=== PATIENT | male | born 1955 | race Caucasian/White ===

== ENCOUNTER → 2022-07-31 | Outpatient (CLI) | payer MEDICARE ==
--- NOTE | 2022-07-31 10:16 | MR ---
EXAMINATION TYPE: MR shoulder RT wo con DATE OF EXAM: 07/31/2022 COMPARISON: None HISTORY: Rt shoulder pain TECHNIQUE: Multiplanar, multisequence imaging of the right shoulder is performed without contrast. FINDINGS: There is a complete loss of joint space of the glenohumeral joint. With a loss of cartilage and a small joint effusion. There is a complete thickness tear of the subscapularis and supraspinatus tendons with retraction. Th ere is reactive edema within the supraspinatus muscle. There is partial tearing involving the anterior fiber insertion of the infraspinatus tendon measuring approximately 5 mm. No retraction. The bicipital tendon is dislocated from the bicipital groove and there is fluid surrounding the bicep s tendon. The tendon appears to be displaced and is along the anterior margin of the joint surface. The bony labrum are grossly intact. There is hypertrophic severe arthropathy of the AC joint resultin g in impingement and there is atrophy of the rotator cuff musculature. IMPRESSION: 1. Complete through thickness tear with retraction of the supraspinatus tendon. Reactive edema within the supraspinatus muscle likely secondary to supraspinatus tendon complete tear. 2. Complete through thickness tear with retraction of the subscapularis tendon. 3. Bicipital tendinosis with dislocation of the biceps tendon bicipital groove and displacement along the anterior joint space. 4. Severe AC joint arthropathy. 5. Severe glenohumeral joint arthropathy small joint effusion.
== END | disposition home or self-care (01) ==
LOC: RADMRIMAIN 08:17
PROVIDERS: ATTEND Physician Assistant
DX: M75.111 Incomplete rotator cuff tear or rupture of right shoulder, not specified as traumatic (principal); M19.011 Primary osteoarthritis, right shoulder; M67.813 Other specified disorders of tendon, right shoulder; S43.004A Unspecified dislocation of right shoulder joint, initial encounter

== ENCOUNTER → 2022-11-04 | Outpatient (CLI) | payer MEDICARE ==
[2022-11-04 09:49] LABS: African American GFR (CKD) 65 (>60 ml/min/1.73 sqM); Blood Urea Nitrogen 28 mg/dL (9-20); Non-African American GFR(CKD) 56 (>60 ml/min/1.73 sqM)
--- NOTE | 2022-11-04 10:37 | CT ---
EXAMINATION TYPE: CT chest w con CT DLP: 462.2 mGycm, Automated exposure control for dose reduction was used. DATE OF EXAM: 11/04/2022 10:23 AM COMPARISON: CT chest 05/01/2022 CLINICAL INDICATION:Male, 67 years old with history of R91.1 SOLITARY PULMONARY NODULE; PHH, SPN TECHNIQUE: Multiple axial images were obtained through the chest following the administration of 100 cc of Isovue 300. . Coronal and sagittal reformats reviewed. FINDINGS: LUNGS/ PLEURA: Near-complete resolution of previously seen left upper lobe 6 mm pulmonary nodule, now measuring 2 mm. No new or enlarging pulmonary nodules. No focal consolidation, pneumothorax or pleur al effusion. AIRWAY: Patent. No evidence of bronchial wall thickening or bronchiectasis. HEART: Size within normal limits. No pericardial effusionSevere coronary artery calcifications. MEDIASTINUM: No evidence of adenopathy. VASCULATURE: No aortic aneurysm. Pulmonary trunk is dilated measuring up to 2.9 cm with dilation of the right and left pulmonary trunks. MUSCULOSKELETAL: No acute osseous abnormalities SOFT TISSUES/LYMPH NODES: Unremarkable. LOWER NECK: No significant findings. UPPER ABDOMEN: No significant findings. IMPRESSION: 1. No acute thoracic process. 2. Resolution of left upper lobe pulmonary nodule measuring 2 mm, previously 6 mm. Likely resolving infectious/inflammatory nodule. No new or enlarging pulmonary nodules. 3. Findings suggestive of pulmonary hypertension with dilated right and left pulmonary trunks.
== END | disposition home or self-care (01) ==
LOC: RADCTMAIN 08:55
PROVIDERS: ATTEND Internal Medicine Critical Care Medicine
DX: R91.1 Solitary pulmonary nodule (principal)
CPT/HCPCS: 82565; 84520; 71260; 36415; Q9967

== ENCOUNTER 2023-06-04 11:36 | Day surgery (SDC) | payer MEDICARE ==
[~2023-06-04 11:36] MED LIST: DEXAMETHASONE SOD PHOSPHATE 4 MG/ML 1 ML VIAL IV ONE; LACTATED RINGERS 1,000 ML IV SCH; LIDOCAINE 1% (10MG/ML) FOR IV START INTRADERMA PRN; ONDANSETRON 4 MG/2 ML VIAL IVP ONE
[2023-06-04] MEDS: LACTATED RINGERS 1,000 ML IV SCH (12:10)
[2023-06-04] MEDS: ALBUTEROL NEBULIZED 2.5 MG/3 ML INHALATION ONE (12:10)
[2023-06-04] MEDS: ATROPINE SULFATE 0.4 MG/ML 1 ML VIAL IM ONE (12:18)
[2023-06-04 12:25] LABS: Glucose,Whole Blood 113 mg/dL (70-110)
[2023-06-04] MEDS ORDERED: PROPOFOL 10 MG/ML 20 ML VIAL IV ONE (12:36)
[2023-06-04] MEDS ORDERED: LIDOCAINE 1% INJ 10MG/ML (20 ML MDV) ONE (12:36)
[2023-06-04] MEDS ORDERED: MIDAZOLAM 2 MG/2 ML VIAL ONE (12:36)
[2023-06-04] MEDS ORDERED: KETAMINE HCL IN 0.9 % NACL 50 MG/5 ML SYRINGE ONE (12:36)
[2023-06-04 12:55] VITALS: TEMP 98.7
[2023-06-04 13:29] VITALS: RESP 16
--- NOTE | 2023-06-04 13:49 | PCN ---
PROCEDURE NOTE PULMONARY/CRITICAL CARE PROCEDURE NOTE: PROCEDURES PERFORMED: Bronchoscopy; airway examination; therapeutic lavage; BAL, right middle lobe. PREOPERATIVE DIAGNOSES: Chronic obstructive pulmonary disease exacerbation, retained secretions, bronchitis/pneumonia. POSTOPERATIVE DIAGNOSES: Chronic obstructive pulmonary disease exacerbation, retained secretions, bronchitis/pneumonia. MAPPING PILOT: Dr. Haley. FIRST TECHNICAL AIDE: Dr. Teri Campo. The patient's procedure took place in room #2, [facility]. There was informed consent and universal timeout. ANESTHESIA PROVIDED: General anesthesia. DESCRIPTION OF PROCEDURE: After the patient was adequately sedated and being fully monitored, the bronchoscope was inserted through the right nostril. It passed through the right nasopharynx into the oropharynx. The hypopharynx was identified and topicalized. The hypopharyngeal structures including anterior commissure, true cords, false cords, piriform sinuses, right and left, vallecula, and epiglottis, all appeared relatively normal. The glottic opening was topicalized. The bronchoscope was pushed through the glottic opening into the trachea. The trachea appeared relatively normal, although there were thick secretions noted in the trachea. They were suctioned. The tracheal sumit was sharp. The right and left mainstem were topicalized with lidocaine. The right upper lobe and its 3 segments, right middle lobe and its 2 segments, right lower lobe and its 5 segments, left upper lobe proper and its 2 segments, lingula and its 2 segments, and left lower lobe and its 4 segments all had similar findings of diffuse airway erythema and hyperemia. There was mucosal friability. There was vascular engorgement. There was no dominant mass or tumor. There were thick secretions noted throughout. They were suctioned with some difficulty. After the secretions were suctioned, with the aid of saline, the bronchoscope was wedged into the right middle lobe. A formal BAL took place. More than 30 mL of fluid was recovered. The fluid will be sent for analysis including cytology, chemistry, microbiology, etc. The patient tolerated the procedure well. The bronchoscope was withdrawn. The patient will be recovered. MMODL / IJN: [id number] /
[2023-06-04 14:03] VITALS: BP 123/70; PULSE 104
[2023-06-04 18:26] LABS: Appearance,BF Bloody (Clear)
== END 2023-06-04 13:57 | disposition home or self-care (01) ==
LOC: ORWHC2ENDO 11:36
PROVIDERS: ATTEND Internal Medicine Critical Care Medicine
DX: J44.1 Chronic obstructive pulmonary disease with (acute) exacerbation (principal); J44.0 Chronic obstructive pulmonary disease with (acute) lower respiratory infection; J18.9 Pneumonia, unspecified organism; I25.2 Old myocardial infarction; I10 Essential (primary) hypertension; E78.5 Hyperlipidemia, unspecified; Z95.5 Presence of coronary angioplasty implant and graft; Z79.51 Long term (current) use of inhaled steroids; Z79.899 Other long term (current) drug therapy
CPT/HCPCS: 89050; 87070; 87205; 87116; 87102; 87206; 31624; J2250; J0461; J2001; J2704

== ENCOUNTER 2024-03-11 11:13 | Inpatient (IN) | payer MEDICARE ==
[2024-03-11] MEDS: ONDANSETRON 4 MG/2 ML VIAL IVP STA (11:20)
[2024-03-11] MEDS: IPRATROPIUM 0.5 MG/2.5 ML NEBU INHALATION STA (11:42)
[2024-03-11] MEDS: ALBUTEROL NEBULIZED 2.5 MG/3 ML INHALATION STA (11:42)
[2024-03-11] MEDS: methylPREDNISolone SOD SUCCI 125 MG/2 ML VIAL IV STA (11:55)
[2024-03-11] MEDS: cefTRIAXone IN SWFI 1,000 MG/10 ML SYRINGE IVP STA ×2 (12:02→12:06)
[2024-03-11] MEDS: ACETAMINOPHEN TAB 500 MG TAB PO STA (12:08)
[2024-03-11] MEDS: IBUPROFEN 600 MG TAB PO STA (12:09)
[2024-03-11 12:17] LABS: ALT 25 U/L (4-49); AST 28 U/L (17-59); African American GFR (CKD) 66 (>60 ml/min/1.73 sqM); Albumin 4.5 g/dL (3.5-5.0); Alkaline Phosphatase 61 U/L (38-126); Anion Gap 10 mmol/L; Blood Urea Nitrogen 34 mg/dL (9-20); Calcium 9.4 mg/dL (8.4-10.2); Carbon Dioxide 26 mmol/L (22-30); Chloride 104 mmol/L (98-107); Glucose 123 mg/dL (74-99); Magnesium 1.6 mg/dL (1.6-2.3); Non-African American GFR(CKD) 57 (>60 ml/min/1.73 sqM); Potassium 3.8 mmol/L (3.5-5.1); Sodium 140 mmol/L (137-145); Total Bilirubin 1.1 mg/dL (0.2-1.3); Total Protein 6.8 g/dL (6.3-8.2)
[2024-03-11 12:24] LABS: HCT 49.5 % (39.0-53.0); HGB 16.1 gm/dL (13.0-17.5); MCH 33.6 pg (25.0-35.0); MCHC 32.6 g/dL (31.0-37.0); MCV 102.9 fL (80.0-100.0); Macrocytosis Slight; Platelet Count 176 k/uL (150-450); Prothrombin Time 10.8 sec (10.0-12.5); RBC 4.81 m/uL (4.30-5.90); RDW 14.5 % (11.5-15.5); WBC 12.3 k/uL (3.8-10.6)
[2024-03-11 12:25] LABS: NT-Pro-B-Type Natriuretic Pept 415 pg/mL
[2024-03-11] MEDS: HYDROCORTISONE SUCCINATE 100 MG/2 ML VIAL IV STA (12:28)
[2024-03-11 12:34] LABS: Partial Thromboplastin Time 19.9 sec (22.0-30.0)
--- NOTE | 2024-03-11 12:41 | ED ---
General Adult HPI - General Chief complaint: Shortness of Breath Stated complaint: NOEMY Time Seen by Provider: 03/11/24 11:25 Source: patient, EMS, RN notes reviewed, old records reviewed Mode of arrival: EMS - History of Present Illness Initial comments: This is a 68-year-old male who presents to the emergency department complaining of difficulty breathing. Patient states has been ongoing for 4 days. Patient states is just gotten progressively worse. Patient states he is on 2 L of oxygen at home. Patient states he does have a cough and that has been getting progressively worse. Patient states he is coughing up some pinkish sputum. Patient also states he just got back from [place]. Patient denies any fever that he knows of however we measured a fever orally in the emergency department. Patient denies any abdominal pain patient has nausea vomiting diarrhea. - Related Data Home Medications Medication Instructions Recorded Confirmed Aspirin [Adult Low Dose Aspirin EC] 81 mg PO DAILY 06/02/23 06/02/23 Fluticasone/Umeclidin/Vilanter 1 inh INHALATION DAILY 06/02/23 06/02/23 [Trelegy Ellipta 200-62.5-25] Metoprolol Succinate [Metoprolol 25 mg PO DAILY 06/02/23 06/02/23 Succinate ER] Montelukast [Singulair] 10 mg PO DAILY 06/02/23 06/02/23 Simvastatin 40 mg PO DAILY 06/02/23 06/02/23 lisinopriL [Zestril] 10 mg PO DAILY 06/02/23 06/02/23 traZODone HCL 100 mg PO HS 06/02/23 06/02/23 Allergies Allergy/AdvReac Type Severity Reaction Status Date / Time No Known Allergies Allergy Verified 03/11/24 11:35 Review of Systems ROS Statement: Those systems with pertinent positive or pertinent negative responses have been documented in the HPI. ROS Other: All systems not noted in ROS Statement are negative. 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 states he's awaiting delviery of home O2. pt not sure if he's to wear atc or not at this time. Last Myocardial Infarction Date:: 30-40 yrs ago History of Any Multi-Drug Resistant Organisms: None Reported Past Surgical History: Back Surgery, Heart Catheterization With Stent, Orthopedic Surgery Additional Past Surgical History / Comment(s): rt shoulder rotator cuff repair Past Anesthesia/Blood Transfusion Reactions: No Reported Reaction Date of Last Stent Placement:: unk Past Psychological History: No Psychological Hx Reported Smoking Status: Former smoker Past Alcohol Use History: Occasional Past Drug Use History: None Reported - Past Family History Father Family Medical History: Cancer Mother Family Medical History: Cancer Brother(s) Family Medical History: Cancer General Exam - General Exam Comments Initial Comments: GENERAL: Patient is well-developed and well-nourished. Patient is nontoxic and well- hydrated and is in moderate distress. ENT: Neck is soft and supple. No significant lymphadenopathy is noted. Oropharynx is clear. Moist mucous membranes. Neck has full range of motion without eliciting any pain. EYES: The sclera were anicteric and conjunctiva were pink and moist. Extraocular movements were intact and pupils were equal round and reactive to light. Eyelids were unremarkable. PULMONARY: Unlabored respirations. Good breath sounds bilaterally. No audible rales rhonchi or wheezing was noted. CARDIOVASCULAR: There is a regular rate and rhythm without any murmurs gallops or rubs. ABDOMEN: Soft and nontender with normal bowel sounds. SKIN: Skin is clear with no lesions or rashes and otherwise unremarkable. NEUROLOGIC: Patient is alert and oriented x3. Cranial nerves II through XII are grossly intact. Motor and sensory are also intact. Normal speech, volume and content. Symmetrical smile. MUSCULOSKELETAL: Normal extremities with adequate strength and full range of motion. LYMPHATICS: No significant lymphadenopathy is noted PSYCHIATRIC: Normal psychiatric evaluation. Course Vital Signs 03/11/24 03/11/24 03/11/24 11:22 11:30 11:32 Temperature 100.8 F H Pulse Rate 134 H 128 H Respiratory 30 H 34 H Rate Blood Pressure 133/100 89/69 O2 Sat by Pulse 74 L 95 Oximetry Fraction of 50 Inspired Oxygen (FIO2) 03/11/24 03/11/24 03/11/24 11:33 11:43 11:55 Temperature Pulse Rate 128 H 126 H Respiratory 30 H Rate Blood Pressure 91/68 O2 Sat by Pulse 94 L Oximetry Fraction of 50 Inspired Oxygen (FIO2) 03/11/24 03/11/24 03/11/24 12:00 12:07 12:12 Temperature Pulse Rate 124 H 131 H 129 H Respiratory 28 H 32 H Rate Blood Pressure 78/52 85/59 O2 Sat by Pulse 96 90 L Oximetry Fraction of Inspired Oxygen (FIO2) 03/11/24 03/11/24 03/11/24 12:23 13:28 13:34 Temperature 98.6 F Pulse Rate 131 H 118 H 113 H Respiratory 26 H 25 H 26 H Rate Blood Pressure 82/60 86/59 90/61 O2 Sat by Pulse 95 93 L 97 Oximetry Fraction of Inspired Oxygen (FIO2) 03/11/24 14:12 Temperature Pulse Rate 110 H Respiratory 20 Rate Blood Pressure 104/90 O2 Sat by Pulse 96 Oximetry Fraction of Inspired Oxygen (FIO2) Procedures - [place] Protocol (Time Out) Nurse: Nilam Bello Medical Decision Making - Medical Decision Making EKG is interpreted by myself. EKG shows a sinus tachycardia with occasional PVC at 120 bpm ME interval 129 QRS is 97 QT interval is 317 QTc is 388. Patient's EKG shows no ST segment elevation or depression. Was pt. sent in by a medical professional or institution (, PA, MECHANICAL PLANNER, urgent care, hospital, or shelter...) When possible be specific @ -No Did you speak to anyone other than the patient for history (EMS, parent, family, police, friend...)? What history was obtained from this source @ -No Did you review nursing and triage notes (agree or disagree)? Why? @ -I reviewed and agree with nursing and triage notes Were old charts reviewed (outside hosp., previous admission, EMS record, old EKG, old radiological studies, urgent care reports/EKG's, shelter records)? Report findings @ -No old charts were reviewed Differential Diagnosis? @ -Differential Dyspnea: Coronary syndrome, arrhythmia, tamponade, asthma, COPD, pulmonary embolism, pneumonia, pneumothorax, pulmonary effusion, anaphylaxis, diabetic ketoacidosis, flailed chest, pulmonary contusion, diaphragmatic rupture, anemia, neuromuscular, this is not meant to be an all-inclusive list. EKG interpreted by me (3pts min.). @ -As above X-rays interpreted by me (1pt min.). @ -X-ray shows bilateral infiltrates. CT interpreted by me (1pt min.). @ -CT of the chest shows no pulmonary embolism but it does show bilateral infiltrates worse on the left than the right. U/S interpreted by me (1pt. min.). @ -None done What testing was considered but not performed or refused? (CT, X-rays, U/S, labs)? Why? @ -None What meds were considered but not given or refused? Why? @ -None Did you discuss the management of the patient with other professionals (professionals i.e. DrEddie, PA, MECHANICAL PLANNER, lab, RT, psych nurse, social sciences research scientist, bed maker, teacher, public health officer, family preservation caseworker)? Give summary @ -I spoke with Dr. Rosenberg and he agreed to admit the patient. Was smoking cessation discussed for >3mins.? @ -No Was critical care preformed (if so, how long)? @ -35 minutes Were there social determinants of health that impacted care today? How? (Homelessness, low income, unemployed, alcoholism, drug addiction, transportation, low edu. Level, literacy, decrease access to med. care, senior living, rehab)? @ -No Was there de-escalation of care discussed even if they declined (Discuss DNR or withdrawal of care, Hospice)? DNR status @ -No What co-morbidities impacted this encounter? (DM, HTN, Smoking, COPD, CAD, Cancer, CVA, ARF, Chemo, Hep., AIDS, mental health diagnosis, sleep apnea, morbid obesity)? @ -None Was patient admitted / discharged? Hospital course, mention meds given and route, prescriptions, significant lab abnormalities, going to OR and other pertinent info. @ -Patient has COVID-pneumonia as well as an overlying bacterial pneumonia and he was started on antibiotics in the emergency department. Patient received 2 breathing treatments as well as steroids. Patient was also placed on BiPAP immediately and was feeling much better. Sound physicians will be admitting and pulmonary will be consulted Undiagnosed new problem with uncertain prognosis? @ -No Drug Therapy requiring intensive monitoring for toxicity (Heparin, Nitro, Insulin, Cardizem)? @ -No Were any procedures done? @ -No Diagnosis/symptom? @ -COVID Acute, or Chronic, or Acute on Chronic? @ -Acute Uncomplicated (without systemic symptoms) or Complicated (systemic symptoms)? @ -Default Side effects of treatment? @ -No Exacerbation, Progression, or Severe Exacerbation? @ -No Poses a threat to life or bodily function? How? (Chest pain, [place], [place], pneumonia, PE, COPD, DKA, ARF, appy, cholecystitis, CVA, Diverticulitis, Homicidal, Suicidal, threat to staff... and all critical care pts) @ -Yes this can lead to hypoxia and endorgan dysfunction Diagnosis/symptom? @ -Pneumonia Acute, or Chronic, or Acute on Chronic? @ -Acute Uncomplicated (without systemic symptoms) or Complicated (systemic symptoms)? @ -Complicated Side effects of treatment? @ -None Exacerbation, Progression, or Severe Exacerbation] @ -No Poses a threat to life or bodily function? @ -Yes this can lead to hypoxia and endorgan dysfunction - Lab Data Result diagrams: 03/11/24 11:45 03/11/24 11:45 Lab Results 03/11/24 03/11/24 03/11/24 Range/Units 11:45 11:45 11:45 WBC 12.3 H (3.8-10.6) k/uL RBC 4.81 (4.30-5.90) m/uL Hgb 16.1 (13.0-17.5) gm/dL Hct 49.5 (39.0-53.0) % MCV 102.9 H (80.0-100.0) fL MCH 33.6 (25.0-35.0) pg MCHC 32.6 (31.0-37.0) g/dL RDW 14.5 (11.5-15.5) % Plt Count 176 (150-450) k/uL MPV 8.0 Neutrophils % (Manual) 77 % Band Neuts % (Manual) 9 % Lymphocytes % (Manual) 5 % Monocytes % (Manual) 9 % Neutrophils # (Manual) 10.50 H (1.3-7.7) k/uL Lymphocytes # (Manual) 0.62 L (1.0-4.8) k/uL Monocytes # (Manual) 1.11 H (0-1.0) k/uL Nucleated RBCs 0 (0-0) /100 WBC Manual Slide Review Performed Toxic Granulation Present Macrocytosis Slight PT 10.8 (10.0-12.5) sec INR 1.0 (<1.2) APTT 19.9 L (22.0-30.0) sec D-Dimer (<0.60) mg/L FEU Sample Site ABG pH (7.35-7.45) ABG pCO2 (35-45) mmHg ABG pO2 (83-108) mmHg ABG HCO3 (21-25) mmol/L ABG Total CO2 (19-24) mmol/L ABG O2 Saturation (94-97) % Ryan Test FiO2 % Sodium 140 (137-145) mmol/L Potassium 3.8 (3.5-5.1) mmol/L Chloride 104 (98-107) mmol/L Carbon Dioxide 26 (22-30) mmol/L Anion Gap 10 mmol/L BUN 34 H (9-20) mg/dL Creatinine 1.27 H (0.66-1.25) mg/dL Est GFR (CKD-EPI)AfAm 66 (>60 ml/min/1.73 sqM) Est GFR (CKD-EPI)NonAf 57 (>60 ml/min/1.73 sqM) Glucose 123 H (74-99) mg/dL Lactic Ac Sepsis Rflx Plasma Lactic Acid Miko (0.7-2.0) mmol/L Calcium 9.4 (8.4-10.2) mg/dL Magnesium 1.6 (1.6-2.3) mg/dL Total Bilirubin 1.1 (0.2-1.3) mg/dL AST 28 (17-59) U/L ALT 25 (4-49) U/L Alkaline Phosphatase 61 (38-126) U/L Troponin I (0.000-0.034) ng/mL NT-Pro-B Natriuret Pep 415 pg/mL Total Protein 6.8 (6.3-8.2) g/dL Albumin 4.5 (3.5-5.0) g/dL Influenza Type A (PCR) (Not Detectd) Influenza Type B (PCR) (Not Detectd) RSV (PCR) (Not Detectd) SARS-CoV-2 (PCR) (Not Detectd) 03/11/24 03/11/24 03/11/24 Range/Units 11:45 11:45 11:45 WBC (3.8-10.6) k/uL RBC (4.30-5.90) m/uL Hgb (13.0-17.5) gm/dL Hct (39.0-53.0) % MCV (80.0-100.0) fL MCH (25.0-35.0) pg MCHC (31.0-37.0) g/dL RDW (11.5-15.5) % Plt Count (150-450) k/uL MPV Neutrophils % (Manual) % Band Neuts % (Manual) % Lymphocytes % (Manual) % Monocytes % (Manual) % Neutrophils # (Manual) (1.3-7.7) k/uL Lymphocytes # (Manual) (1.0-4.8) k/uL Monocytes # (Manual) (0-1.0) k/uL Nucleated RBCs (0-0) /100 WBC Manual Slide Review Toxic Granulation Macrocytosis PT (10.0-12.5) sec INR (<1.2) APTT (22.0-30.0) sec D-Dimer 5.43 H (<0.60) mg/L FEU Sample Site ABG pH (7.35-7.45) ABG pCO2 (35-45) mmHg ABG pO2 (83-108) mmHg ABG HCO3 (21-25) mmol/L ABG Total CO2 (19-24) mmol/L ABG O2 Saturation (94-97) % Ryan Test FiO2 % Sodium (137-145) mmol/L Potassium (3.5-5.1) mmol/L Chloride (98-107) mmol/L Carbon Dioxide (22-30) mmol/L Anion Gap mmol/L BUN (9-20) mg/dL Creatinine (0.66-1.25) mg/dL Est GFR (CKD-EPI)AfAm (>60 ml/min/1.73 sqM) Est GFR (CKD-EPI)NonAf (>60 ml/min/1.73 sqM) Glucose (74-99) mg/dL Lactic Ac Sepsis Rflx Plasma Lactic Acid Miko 2.7 H* (0.7-2.0) mmol/L Calcium (8.4-10.2) mg/dL Magnesium (1.6-2.3) mg/dL Total Bilirubin (0.2-1.3) mg/dL AST (17-59) U/L ALT (4-49) U/L Alkaline Phosphatase (38-126) U/L Troponin I 0.096 H* (0.000-0.034) ng/mL NT-Pro-B Natriuret Pep pg/mL Total Protein (6.3-8.2) g/dL Albumin (3.5-5.0) g/dL Influenza Type A (PCR) (Not Detectd) Influenza Type B (PCR) (Not Detectd) RSV (PCR) (Not Detectd) SARS-CoV-2 (PCR) (Not Detectd) 03/11/24 03/11/24 03/11/24 Range/Units 12:12 12:18 12:32 WBC (3.8-10.6) k/uL RBC (4.30-5.90) m/uL Hgb (13.0-17.5) gm/dL Hct (39.0-53.0) % MCV (80.0-100.0) fL MCH (25.0-35.0) pg MCHC (31.0-37.0) g/dL RDW (11.5-15.5) % Plt Count (150-450) k/uL MPV Neutrophils % (Manual) % Band Neuts % (Manual) % Lymphocytes % (Manual) % Monocytes % (Manual) % Neutrophils # (Manual) (1.3-7.7) k/uL Lymphocytes # (Manual) (1.0-4.8) k/uL Monocytes # (Manual) (0-1.0) k/uL Nucleated RBCs (0-0) /100 WBC Manual Slide Review Toxic Granulation Macrocytosis PT (10.0-12.5) sec INR (<1.2) APTT (22.0-30.0) sec D-Dimer (<0.60) mg/L FEU Sample Site Left Radial ABG pH 7.34 L (7.35-7.45) ABG pCO2 45 (35-45) mmHg ABG pO2 76 L (83-108) mmHg ABG HCO3 24 (21-25) mmol/L ABG Total CO2 26 H (19-24) mmol/L ABG O2 Saturation 94.9 (94-97) % Ryan Test Yes FiO2 50 % Sodium (137-145) mmol/L Potassium (3.5-5.1) mmol/L Chloride (98-107) mmol/L Carbon Dioxide (22-30) mmol/L Anion Gap mmol/L BUN (9-20) mg/dL Creatinine (0.66-1.25) mg/dL Est GFR (CKD-EPI)AfAm (>60 ml/min/1.73 sqM) Est GFR (CKD-EPI)NonAf (>60 ml/min/1.73 sqM) Glucose (74-99) mg/dL Lactic Ac Sepsis Rflx Y Plasma Lactic Acid Miko (0.7-2.0) mmol/L Calcium (8.4-10.2) mg/dL Magnesium (1.6-2.3) mg/dL Total Bilirubin (0.2-1.3) mg/dL AST (17-59) U/L ALT (4-49) U/L Alkaline Phosphatase (38-126) U/L Troponin I (0.000-0.034) ng/mL NT-Pro-B Natriuret Pep pg/mL Total Protein (6.3-8.2) g/dL Albumin (3.5-5.0) g/dL Influenza Type A (PCR) Not Detected (Not Detectd) Influenza Type B (PCR) Not Detected (Not Detectd) RSV (PCR) Not Detected (Not Detectd) SARS-CoV-2 (PCR) Detected A (Not Detectd) Disposition Clinical Impression: COVID-19, Pneumonia Disposition: ADMITTED IP TO THIS HOSP Referrals: Anant Maria DO [Primary Care Provider] - 1-2 days Time of Disposition: 14:37
--- NOTE | 2024-03-11 12:43 | XR ---
EXAMINATION TYPE: XR chest 1V portable DATE OF EXAM: 03/11/2024 12:32 PM COMPARISON: None. CLINICAL INDICATION: Male, 68 years old with history of difficulty breathing, TECHNIQUE: Single frontal view of the chest is obtained. FINDINGS: Patchy basilar infiltrates noted. Correlate for pneumonia. The cardiac silhouette size is w ithin normal limits. The osseous structures are intact. IMPRESSION: Correlate for basilar pneumonia. [facility], , 03/11/2024 12:41 PM
[2024-03-11 12:45] LABS: ABG HCO3 24 mmol/L (21-25); ABG PCO2 45 mmHg (35-45); ABG PH 7.34 (7.35-7.45); ABG PO2 76 mmHg (83-108); Allen Test Performed? Yes
[2024-03-11 12:46] LABS: ABG Oxygen Saturation 94.9 % (94-97); ABG TCO2 26 mmol/L (19-24)
[2024-03-11 12:51] LABS: Band Neutrophils % 9 %; Lymphocytes # (M) 0.62 k/uL (1.0-4.8); Monocytes # (M) 1.11 k/uL (0-1.0); Neutrophils % (M) 77 %; Nucleated Red Blood Cells 0 /100 WBC (0-0); Total Cells Counted 100
[2024-03-11 12:52] LABS: Toxic Granulation Present
[2024-03-11] MEDS: SODIUM CHLORIDE 0.9% 1,000 ML IV ONE (13:24)
[2024-03-11] MEDS: SODIUM CHLORIDE 0.9% 500 ML 500 ML IV ONE ×2 (13:26→23:17)
--- NOTE | 2024-03-11 14:22 | CT ---
EXAMINATION TYPE: CT chest angio for PE DATE OF EXAM: 03/11/2024 COMPARISON: 11/04/2022 CLINICAL INDICATION: Male, 68 years old with history of Elevated D-dimer, dyspnea; PHH, sob, SOB or P AIN TECHNIQUE: Ct angiogram of the chest performed with with IV Contrast, patient injected with 65 mL of Isovue 370. MIP images are created and reviewed. CT DLP: 396.[address] CTDI: mGy Automated exposure control for dose reduction was used. FINDINGS: There is a large focal partially consolidative opacity in the left lower lobe. There are scattered fo enio areas of consolidation in the right lung is well. There is a 11 mm juxtapleural nodule associated with a fissure on the left. There is no pleural effusion or pneumothorax. The great vessels the chest are normal and there is no mediastinal, hilar or axillary adenopathy. The re are no filling defects within the pulmonary arterial circulation to suggest pulmonary embolism. The osseous structures are intact. Limited scanning through the upper abdomen reveals no gross abnorm ality. IMPRESSION: 1. No evidence of pulmonary embolism. 2. Multifocal lung consolidation greatest in the left lower lobe. The findings are suggestive of an a cute process such as bilateral pneumonia. 3. 11 mm nodule in the left lung associated with the fissure. It is suspicious for neoplasm and PET s can or 3 month follow-up CT thorax is recommended. [facility], , 03/11/2024 2:20 PM
[2024-03-11] MEDS ORDERED: IPRATROPIUM-ALBUTEROL 3 ML NEB INHALATION PRN (14:37)
[2024-03-11] MEDS ORDERED: PNEUMONIA PROTOCOL UTILIZED 1 EACH MISC PO PRN (14:37)
[2024-03-11] MEDS: AZITHROMYCIN 500 MG in SODIUM CHLORIDE 0.9% 250 ML IVPB STA (15:17)
[2024-03-11] MEDS: HEPARIN SODIUM,PORCINE 5,000 UNIT/ML 1 ML VIAL SQ SCH (16:26)
--- NOTE | 2024-03-11 16:29 | P.HPIM ---
History of Present Illness H&P Date: 03/11/24 Patient is a 68-year-old male with a past medical history significant for COPD on 2 L O2 at home, CHF with an unknown ejection fraction, hypertension, hyperlipidemia, history of VT 25 years ago with 1 stent presented to the emergency department for dyspnea, nonbloody diarrhea, nonbloody emesis, and cough productive of brownish sputum since yesterday evening. He is accompanied by family at bedside. He states that he became acutely ill and dyspneic yesterday evening. Denies feeling unwell prior to that. He currently endorses dyspnea and productive cough. Currently denies fever, chills, chest pain, abdominal pain, nausea, vomiting. He is currently on BiPAP saturating at 97%. Initial chest x-ray independently interpreted: Bilateral basilar infiltrates. Initial EKG independently interpreted: Sinus tachycardia with occasional PVCs. Initial labs: WBC 12.3, hemoglobin 16.1, MCV 102, platelets 176, PT 10.8, INR 1, APTT 19.9, D-dimer 5.43, sodium 140, potassium 3.8, chloride 104, CO2 26, BUN 34, creatinine 1.27, glucose 127, lactic acid 2.7, troponin X1 0.096. COVID- positive. Initial vitals: T 100.8 F, WV 134, RR 30, BP 133/100, O2 74% on room air. ED documentation reviewed. Review of systems: Pertinent positives and negatives as discussed in HPI, a complete review of systems was performed and all other systems are negative. Social history: Tobacco: Former smoker, quit 20 years ago Alcohol: Occasional Recreational drugs: None reported Travel: Returned from [place] on 03/06/2024 Sick contacts: Several family members have suspected viral illnesses Physical examination: Vital signs reviewed General: Respiratory distress, on BiPAP, labored breathing Derm: Warm, dry, intact Head: Atraumatic, normocephalic, symmetric Eyes: EOMI, anicteric sclera Mouth: No lip lesion, mucus membranes moist Cardiovascular: Heart sounds distant Lungs: Bilateral expiratory rhonchi, shallow breathing, use of accessory muscles Abdominal: Soft, non-tender to palpation Extremities: No cyanosis, clubbing, 1+ pitting edema bilaterally to the knee Neuro: Alert, oriented x 3, gross neurological examination did not reveal any focal deficits. Cranial nerves II to XII grossly intact. Psych: Appropriate affect and mood Assessment and Plan: Patient is a 68-year-old male with past medical history significant for COPD on 2 L home O2, CHF with an unknown ejection fraction, hypertension, hyperlipidemia, history of VT 25 years ago with 1 stent admitted for COVID pneumonia. Active #. Acute COVID pneumonia #. Acute on chronic hypoxic respiratory failure, less likely COPD exacerbation #. Possible superimposed bacterial pneumonia #. Sepsis #. Leukocytosis On BiPAP, continue to wean IV Decadron 6 mg daily for 10 days Oxygen supplementation as needed to maintain oxygen >88% Ventolin HFA every 4 hours as needed Pulmonology consulted, may need monoclonal antibodies or remdesivir Sputum cultures pending Continue Trelegy Procalcitonin pending Blood cultures pending Sputum cultures pending #. Lactic acidosis Continue to monitor Patient is status post 1.5 L of normal saline #. NSTEMI, likely type II Trend troponins Obtain echo Telemetry monitoring Aspirin and statin restarted Chronic #. CHF with an unknown ejection fraction, not in acute exacerbation #. CAD #. Hypertension #. History of VT 25 years ago with 1 stent #. Hyperlipidemia Hold lisinopril due to hypotensive episodes Aspirin 81 mg PO daily #. Chronic kidney disease stage III DVT prophylaxis: Subcutaneous heparin every 8 hours The patient is admitted with an anticipated less than 2 midnight stay for evaluation of COVID-pneumonia CODE STATUS: Full code Discussed with: Patient, patient's family, and Dr. Rosenberg Anticipated discharge place: Home A total of 65 minutes was spent on the care of this complex patient more than 50% of the time was spent in counseling and care coordination. I have seen and evaluated the patient today. Discussed with the resident and agree with the residents finding and plan as documented in the resident's note. Changes highlighted in blue font. 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 states he's awaiting delviery of home O2. pt not sure if he's to wear atc or not at this time. Last Myocardial Infarction Date:: 30-40 yrs ago History of Any Multi-Drug Resistant Organisms: None Reported Past Surgical History: Back Surgery, Heart Catheterization With Stent, Orthopedic Surgery Additional Past Surgical History / Comment(s): rt shoulder rotator cuff repair Past Anesthesia/Blood Transfusion Reactions: No Reported Reaction Date of Last Stent Placement:: unk Past Psychological History: No Psychological Hx Reported Smoking Status: Former smoker Past Alcohol Use History: Occasional Past Drug Use History: None Reported - Past Family History Father Family Medical History: Cancer Mother Family Medical History: Cancer Brother(s) Family Medical History: Cancer Medications and Allergies Home Medications Medication Instructions Recorded Confirmed Type Aspirin [Adult Low Dose Aspirin EC] 81 mg PO DAILY 06/02/23 06/02/23 History Fluticasone/Umeclidin/Vilanter 1 inh INHALATION DAILY 06/02/23 06/02/23 History [Trelegy Ellipta 200-62.5-25] Metoprolol Succinate [Metoprolol 25 mg PO DAILY 06/02/23 06/02/23 History Succinate ER] Montelukast [Singulair] 10 mg PO DAILY 06/02/23 06/02/23 History Simvastatin 40 mg PO DAILY 06/02/23 06/02/23 History lisinopriL [Zestril] 10 mg PO DAILY 06/02/23 06/02/23 History traZODone HCL 100 mg PO HS 06/02/23 06/02/23 History Allergies Allergy/AdvReac Type Severity Reaction Status Date / Time No Known Allergies Allergy Verified 03/11/24 11:35 Physical Exam Vitals: Vital Signs Temp Pulse Resp BP Pulse Ox FiO2 03/11/24 14:12 110 H 20 104/90 96 03/11/24 13:34 113 H 26 H 90/61 97 03/11/24 13:28 98.6 F 118 H 25 H 86/59 93 L 03/11/24 12:23 131 H 26 H 82/60 95 03/11/24 12:12 129 H 32 H 85/59 90 L 03/11/24 12:07 131 H 28 H 78/52 96 03/11/24 12:00 124 H 03/11/24 11:55 126 H 30 H 91/68 94 L 03/11/24 11:43 128 H 03/11/24 11:33 50 03/11/24 11:32 50 03/11/24 11:30 128 H 34 H 89/69 95 03/11/24 11:22 100.8 F H 134 H 30 H 133/100 74 L Intake and Output 03/10/24 03/11/24 03/11/24 22:59 06:59 14:59 Other: Weight 89.811 kg Results CBC & Chem 7: 03/11/24 11:45 03/11/24 11:45 Labs: Abnormal Lab Results - Last 24 Hours (Table) 03/11/24 03/11/24 03/11/24 Range/Units 11:45 11:45 11:45 WBC 12.3 H (3.8-10.6) k/uL MCV 102.9 H (80.0-100.0) fL Neutrophils # (Manual) 10.50 H (1.3-7.7) k/uL Lymphocytes # (Manual) 0.62 L (1.0-4.8) k/uL Monocytes # (Manual) 1.11 H (0-1.0) k/uL APTT 19.9 L (22.0-30.0) sec D-Dimer (<0.60) mg/L FEU ABG pH (7.35-7.45) ABG pO2 (83-108) mmHg ABG Total CO2 (19-24) mmol/L BUN 34 H (9-20) mg/dL Creatinine 1.27 H (0.66-1.25) mg/dL Glucose 123 H (74-99) mg/dL Plasma Lactic Acid Miko (0.7-2.0) mmol/L Troponin I (0.000-0.034) ng/mL SARS-CoV-2 (PCR) (Not Detectd) 03/11/24 03/11/24 03/11/24 Range/Units 11:45 11:45 11:45 WBC (3.8-10.6) k/uL MCV (80.0-100.0) fL Neutrophils # (Manual) (1.3-7.7) k/uL Lymphocytes # (Manual) (1.0-4.8) k/uL Monocytes # (Manual) (0-1.0) k/uL APTT (22.0-30.0) sec D-Dimer 5.43 H (<0.60) mg/L FEU ABG pH (7.35-7.45) ABG pO2 (83-108) mmHg ABG Total CO2 (19-24) mmol/L BUN (9-20) mg/dL Creatinine (0.66-1.25) mg/dL Glucose (74-99) mg/dL Plasma Lactic Acid Miko 2.7 H* (0.7-2.0) mmol/L Troponin I 0.096 H* (0.000-0.034) ng/mL SARS-CoV-2 (PCR) (Not Detectd) 03/11/24 03/11/24 Range/Units 12:12 12:32 WBC (3.8-10.6) k/uL MCV (80.0-100.0) fL Neutrophils # (Manual) (1.3-7.7) k/uL Lymphocytes # (Manual) (1.0-4.8) k/uL Monocytes # (Manual) (0-1.0) k/uL APTT (22.0-30.0) sec D-Dimer (<0.60) mg/L FEU ABG pH 7.34 L (7.35-7.45) ABG pO2 76 L (83-108) mmHg ABG Total CO2 26 H (19-24) mmol/L BUN (9-20) mg/dL Creatinine (0.66-1.25) mg/dL Glucose (74-99) mg/dL Plasma Lactic Acid Miko (0.7-2.0) mmol/L Troponin I (0.000-0.034) ng/mL SARS-CoV-2 (PCR) Detected A (Not Detectd)
[2024-03-11] MEDS ORDERED: methylPREDNISolone SOD SUCCI 125 MG/2 ML VIAL IV SCH (18:00)
[2024-03-11] MEDS ORDERED: IPRATROPIUM 0.5 MG/2.5 ML NEBU INHALATION SCH (20:00)
[2024-03-11] MEDS ORDERED: ZOLPIDEM 5 MG TAB PO PRN (21:00)
[2024-03-11] MEDS: SYMBICORT 160-4.5 MCG INHALER INHALATION SCH (21:01)
[2024-03-11] MEDS: ALBUTEROL HFA INHALER INHALATION PRN (21:01)
[2024-03-11] MEDS: MELATONIN 5 MG TABLET PO SCH (21:43)
[2024-03-11] MEDS: SODIUM CHLORIDE 0.9% 500 ML 1,000 ML IV ONE (23:24)
--- NOTE | 2024-03-12 08:07 | XR ---
EXAMINATION TYPE: XR chest 1V portable DATE OF EXAM: 03/12/2024 4:41 AM COMPARISON: Chest radiographs from 03/11/2024 CLINICAL INDICATION: Male, 68 years old with history of pneumonia; [facility] TECHNIQUE: XR chest 1V portable Frontal view of the chest. FINDINGS: Lungs/Pleura: Similar multifocal airspace opacities. No evidence of pneumothorax or pleural effusion. Pulmonary vascularity: Unremarkable. Heart/mediastinum: Cardiomediastinal silhouette is unremarkable. Musculoskeletal: No acute osseous pathology. IMPRESSION: Similar multifocal airspace opacities. [facility], , 03/12/2024 8:05 AM
[2024-03-12] MEDS ORDERED: NON FORMULARY DRUG (Fluticasone/Umeclidin/Vilanter [Trelegy Ellipta 200-62.5-25] 1 EACH Bl INHALATION SCH (09:00)
[2024-03-12] MEDS: METOPROLOL SUCCINATE (ER) 25 MG TAB.ER.24H PO SCH (09:10)
[2024-03-12] MEDS: DEXAMETHASONE SOD PHOSPHATE 10 MG/ML 1 ML VIAL IVP SCH (09:10)
[2024-03-12] MEDS: ASPIRIN 81 MG PO SCH (09:10)
[2024-03-12] MEDS: ATORVASTATIN 20 MG TAB PO SCH (09:10)
[2024-03-12] MEDS: AZITHROMYCIN 500 MG TAB PO SCH (09:10)
[2024-03-12] MEDS: TIOTROPIUM 2.5 MCG INHALER INHALATION SCH (09:51)
[2024-03-12 10:13] LABS: Basophils % (A) 0 %; Eosinophils % (A) 0 %; HCT 41.1 % (39.0-53.0); HGB 13.2 gm/dL (13.0-17.5); Hypochromasia Slight; Lymphocytes # (A) 0.3 k/uL (1.0-4.8); Lymphocytes % (A) 3 %; MCH 33.8 pg (25.0-35.0); MCHC 32.1 g/dL (31.0-37.0); MCV 105.3 fL (80.0-100.0); Macrocytosis Moderate; Mean Platelet Volume 7.9; Monocytes # (A) 0.5 k/uL (0-1.0); Monocytes % (A) 4 %; Neutrophils % (A) 92 %; Platelet Count 135 k/uL (150-450); RDW 14.6 % (11.5-15.5); WBC 11.9 k/uL (3.8-10.6)
[2024-03-12 10:23] LABS: African American GFR (CKD) 47 (>60 ml/min/1.73 sqM); Anion Gap 11 mmol/L; Blood Urea Nitrogen 43 mg/dL (9-20); Calcium 8.2 mg/dL (8.4-10.2); Carbon Dioxide 22 mmol/L (22-30); Chloride 107 mmol/L (98-107); Glucose 165 mg/dL (74-99); Non-African American GFR(CKD) 40 (>60 ml/min/1.73 sqM); Potassium 4.6 mmol/L (3.5-5.1); Sodium 140 mmol/L (137-145)
[2024-03-12 11:41] LABS: Glucose,Whole Blood 129 mg/dL (70-110)
--- NOTE | 2024-03-12 11:48 | CA ---
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 67 - 155 / 56 - 104 cm??? LV Systolic Volume MOD BP 48.1 cm??? 22 - 58 / 19 - 49 cm??? LV Ejection Fraction MOD BP 64.7 % >= 55 % LV Cardiac Index MOD BP 4515.1 cm???/min???m??? LV Diastolic Volume MOD 4C 132.8 cm??? LV Systolic Volume MOD 4C 37.8 cm??? LV Ejection Fraction MOD 4C 71.6 % LV Cardiac Index MOD 4C 4870.8 cm???/min???m??? LV Diastolic Length 4C 7.9 cm LV Systolic Length 4C 6.0 cm LV Diastolic Volume MOD 2C 139.1 cm??? LV Systolic Volume MOD 2C 53.3 cm??? LV Ejection Fraction MOD 2C 61.7 % LV Cardiac Index MOD 2C 4393.5 cm???/min???m??? LV Diastolic Length 2C 8.0 cm LV Systolic Length 2C 7.0 cm M-MODE Aortic Root Diameter MM 3.5 cm DOPPLER Mitral E Point Velocity 73.9 cm/s Mitral A Point Velocity 98.0 cm/s Mitral E to A Ratio 0.8 MV Deceleration Time 184.8 ms FINDINGS Left Ventricle Mildly increased left ventricular wall thickness. Left ventricular cavity size normal. No obvious regional wall motion abnormalities. Left ventricular ejection fraction is estimated at 55-60 %. Right Ventricle Right ventricle not well visualized. Right Atrium Normal right atrial size. Left Atrium Left atrium not well visualized. Normal left atrial size. Mitral Valve Structurally normal mitral valve. Mild mitral annular calcification. Mild mitral regurgitation. Aortic Valve Aortic valve not well visualized. No aortic valve stenosis or regurgitation. Tricuspid Valve Structurally normal tricuspid valve. No tricuspid regurgitation. Pulmonic Valve Pulmonic valve not well visualized. Pericardium No pericardial effusion. Aorta Aortic root and proximal ascending aorta not well visualized. CONCLUSIONS Limited echo LVEF 55-60% Mild mitral regurgitation. No pericardial effusion. Previewed by: Dr Jeremi Rodriguez (Electronically Signed) Final Date: 12 March 2024 11:47
--- NOTE | 2024-03-12 13:12 | P.PN ---
Subjective Progress Note Date: 03/12/24 Patient is a 68-year-old male with a past medical history significant for COPD on 2 L O2 at home, CHF with an unknown ejection fraction, hypertension, hyperlipidemia, history of [place] 25 years ago with 1 stent presented to the emergency department for dyspnea, nonbloody diarrhea, nonbloody emesis, and cough productive of brownish sputum since yesterday evening. He is accompanied by family at bedside. He states that he became acutely ill and dyspneic yesterday evening. Denies feeling unwell prior to that. He currently endorses dyspnea and productive cough. Currently denies fever, chills, chest pain, abdominal pain, nausea, vomiting. He is currently on BiPAP saturating at 97%. Initial chest x-ray independently interpreted: Bilateral basilar infiltrates. Initial EKG independently interpreted: Sinus tachycardia with occasional PVCs. Initial labs: WBC 12.3, hemoglobin 16.1, MCV 102, platelets 176, PT 10.8, INR 1, APTT 19.9, D-dimer 5.43, sodium 140, potassium 3.8, chloride 104, CO2 26, BUN 3 4, creatinine 1.27, glucose 127, lactic acid 2.7, troponin X1 0.096. COVID- positive. Initial vitals: T 100.8 F, [place] 134, RR 30, BP 133/100, O2 74% on room air. 03/12. Patient seen and examined at bedside. No acute events overnight. No significant complaints. Endorses continued minimally productive cough and improved breathing. Denies fever, chills, chest pain, abdominal pain, nausea, vomiting. Labs today: WBCs 11.9, hemoglobin 13.2, MCV 105.3, platelets 135, sodium 140, potassium 4.6, chloride 107, CO2 22, BUN 43, creatinine 1.69, glucose 165, lactic acid 2.3, procalcitonin 9.03. Chest x-ray today independently interpreted: Worsened bilateral basilar infiltrates. Echo: LVEF 55-60%, mild mitral regurgitation, no pericardial effusion. Pertinent positives and negatives discussed above, a complete review of systems was performed and all the other systems were negative. Physical examination: Vital signs reviewed. Afebrile, episodes of hypotension, 98% saturation on 12 L high flow cannula General: No acute distress Derm: Warm, dry, intact Head: Atraumatic, normocephalic, symmetric Eyes: EOMI, anicteric sclera Mouth: No lip lesion, mucus membranes moist Cardiovascular: Heart sounds distant Lungs: Bilateral expiratory rhonchi, shallow breathing, use of accessory muscles Abdominal: Soft, non-tender to palpation Extremities: No cyanosis, clubbing, 1+ pitting edema bilaterally to the knee Neuro: Alert, oriented x 3, gross neurological examination did not reveal any focal deficits. Cranial nerves II to XII grossly intact. Psych: Appropriate affect and mood Assessment and Plan: Patient is a 68-year-old male with past medical history significant for COPD on 2 L home O2, CHF with an unknown ejection fraction, hypertension, hyperlipidemia, history of [place] 25 years ago with 1 stent admitted for COVID pneumonia. Active #. Acute COVID pneumonia #. Acute on chronic hypoxic respiratory failure, less likely COPD exacerbation #. Possible superimposed bacterial pneumonia #. Sepsis #. Leukocytosis Continue to wean oxygen as tolerated IV Decadron 6 mg daily for 10 days total Oxygen supplementation as needed to maintain oxygen >88% Ventolin HFA every 4 hours as needed IV ceftriaxone 2 g Zithromax 500 mg PO daily Pulmonology consulted, may need monoclonal antibodies or remdesivir Sputum cultures pending Continue Trelegy Procalcitonin 9.03 Blood cultures pending Sputum cultures pending -If further hypotension, consider switching steroids to hydrocortisone given patient is on steroids at home #. Lactic acidosis, improving Patient is status post 3 L of normal saline #. NSTEMI, likely type II Troponins X3 0.096, 0.122, 0.096 Echo: LVEF 55-60%, mild mitral regurgitation, no pericardial effusion Telemetry monitoring Aspirin and statin restarted Chronic #. CHF with an unknown ejection fraction, not in acute exacerbation #. CAD #. Hypertension #. History of [place] 25 years ago with 1 stent #. Hyperlipidemia Hold lisinopril due to hypotensive episodes Aspirin 81 mg PO daily #. Chronic kidney disease stage III DVT prophylaxis: Subcutaneous heparin every 8 hours Code status: Full code Anticipated discharge place: Home I have seen and evaluated the patient today. Discussed with the resident and agree with the residents finding and plan as documented in the resident's note. Changes highlighted in blue font. Objective - Vital Signs Vital signs: Vital Signs Temp 97.6 F 03/11/24 20:56 Pulse 100 03/12/24 03:42 Resp 18 03/12/24 03:42 BP 114/57 03/12/24 03:42 Pulse Ox 98 03/12/24 03:42 FiO2 50 03/12/24 03:15 Intake & Output 03/11/24 03/11/24 03/12/24 06:59 18:59 06:59 Intake Total 120 Output Total 275 Balance 120 -275 Weight 89.811 kg 91.4 kg Intake: Oral 120 Output: Urine 275 Other: Voiding Method Urinal - Labs CBC & Chem 7: 03/12/24 08:32 03/12/24 08:32 Labs: Abnormal Lab Results - Last 24 Hours (Table) 03/11/24 03/11/24 03/11/24 Range/Units 11:45 11:45 11:45 WBC 12.3 H (3.8-10.6) k/uL MCV 102.9 H (80.0-100.0) fL Neutrophils # (Manual) 10.50 H (1.3-7.7) k/uL Lymphocytes # (Manual) 0.62 L (1.0-4.8) k/uL Monocytes # (Manual) 1.11 H (0-1.0) k/uL APTT 19.9 L (22.0-30.0) sec D-Dimer (<0.60) mg/L FEU ABG pH (7.35-7.45) ABG pO2 (83-108) mmHg ABG Total CO2 (19-24) mmol/L BUN 34 H (9-20) mg/dL Creatinine 1.27 H (0.66-1.25) mg/dL Glucose 123 H (74-99) mg/dL Plasma Lactic Acid Miko (0.7-2.0) mmol/L Troponin I (0.000-0.034) ng/mL Procalcitonin (0.02-0.50) ng/mL SARS-CoV-2 (PCR) (Not Detectd) 03/11/24 03/11/24 03/11/24 Range/Units 11:45 11:45 11:45 WBC (3.8-10.6) k/uL MCV (80.0-100.0) fL Neutrophils # (Manual) (1.3-7.7) k/uL Lymphocytes # (Manual) (1.0-4.8) k/uL Monocytes # (Manual) (0-1.0) k/uL APTT (22.0-30.0) sec D-Dimer 5.43 H (<0.60) mg/L FEU ABG pH (7.35-7.45) ABG pO2 (83-108) mmHg ABG Total CO2 (19-24) mmol/L BUN (9-20) mg/dL Creatinine (0.66-1.25) mg/dL Glucose (74-99) mg/dL Plasma Lactic Acid Miko 2.7 H* (0.7-2.0) mmol/L Troponin I 0.096 H* (0.000-0.034) ng/mL Procalcitonin (0.02-0.50) ng/mL SARS-CoV-2 (PCR) (Not Detectd) 03/11/24 03/11/24 03/11/24 Range/Units 12:12 12:32 14:27 WBC (3.8-10.6) k/uL MCV (80.0-100.0) fL Neutrophils # (Manual) (1.3-7.7) k/uL Lymphocytes # (Manual) (1.0-4.8) k/uL Monocytes # (Manual) (0-1.0) k/uL APTT (22.0-30.0) sec D-Dimer (<0.60) mg/L FEU ABG pH 7.34 L (7.35-7.45) ABG pO2 76 L (83-108) mmHg ABG Total CO2 26 H (19-24) mmol/L BUN (9-20) mg/dL Creatinine (0.66-1.25) mg/dL Glucose (74-99) mg/dL Plasma Lactic Acid Miko 3.0 H* (0.7-2.0) mmol/L Troponin I (0.000-0.034) ng/mL Procalcitonin (0.02-0.50) ng/mL SARS-CoV-2 (PCR) Detected A (Not Detectd) 03/11/24 03/11/24 03/11/24 Range/Units 16:09 16:09 19:05 WBC (3.8-10.6) k/uL MCV (80.0-100.0) fL Neutrophils # (Manual) (1.3-7.7) k/uL Lymphocytes # (Manual) (1.0-4.8) k/uL Monocytes # (Manual) (0-1.0) k/uL APTT (22.0-30.0) sec D-Dimer (<0.60) mg/L FEU ABG pH (7.35-7.45) ABG pO2 (83-108) mmHg ABG Total CO2 (19-24) mmol/L BUN (9-20) mg/dL Creatinine (0.66-1.25) mg/dL Glucose (74-99) mg/dL Plasma Lactic Acid Miko (0.7-2.0) mmol/L Troponin I 0.122 H* 0.096 H* (0.000-0.034) ng/mL Procalcitonin 9.03 H (0.02-0.50) ng/mL SARS-CoV-2 (PCR) (Not Detectd) 03/11/24 03/11/24 03/12/24 Range/Units 19:05 21:51 01:07 WBC (3.8-10.6) k/uL MCV (80.0-100.0) fL Neutrophils # (Manual) (1.3-7.7) k/uL Lymphocytes # (Manual) (1.0-4.8) k/uL Monocytes # (Manual) (0-1.0) k/uL APTT (22.0-30.0) sec D-Dimer (<0.60) mg/L FEU ABG pH (7.35-7.45) ABG pO2 (83-108) mmHg ABG Total CO2 (19-24) mmol/L BUN (9-20) mg/dL Creatinine (0.66-1.25) mg/dL Glucose (74-99) mg/dL Plasma Lactic Acid Miko 2.4 H* 3.6 H* 2.3 H* (0.7-2.0) mmol/L Troponin I (0.000-0.034) ng/mL Procalcitonin (0.02-0.50) ng/mL SARS-CoV-2 (PCR) (Not Detectd)
--- NOTE | 2024-03-12 13:15 | P.CNPUL ---
History of Present Illness Consult date: 03/12/24 Reason for consult: dyspnea, pneumonia History of present illness: On 03/12/2024, this patient is being seen in consultation note for increased d yspnea. The patient is known to have COPD and the patient is O2 dependent maintained on oxygen 2 L/min nasal cannula. He is a former smoker and quit smoking approximately 20 years ago. He used to live in [facility] and is recently located to [place]. The patient is known to have hypertension hyperlipidemia previous history of myocardial infarction that occurred more than 20 years ago. He came with symptoms of URI and subsequently developed cough and congestion and chest tightness and wheezing and he developed acute COPD exacerbation. In the hospital, chest x-ray was done and showed some atelectatic changes in lung base bilaterally. His white cell count was at 12.3 with hemoglobin 16.1 and a platelet count of 176. Normal coagulation profile. D-dimer is at 5.4. Electrolytes are all within normal limits with a BUN of 34 and a creatinine of 1.2. He did have a low-grade fever at time of admission with a temperature of 100.8 and currently is afebrile. He tested positive for COVID-19 infection. No previous infections with a virus. Based on that, the patient was started on Decadron. He was also given a CT of the chest that showed no evidence of any pulmonary embolism. Nevertheless, the CAT scan showed multifocal consolidative changes in the lung bases worse in the left lung base and this is more suggestive of bacterial infection. Another 11 mm nodule was seen in the left m idlung and this needs to be followed up on an outpatient basis following his pneumonia treatment. Based on his consolidative changes, the patient was started on broad-spectrum antibiotics and is currently on a combination of Rocephin and Zithromax. The procalcitonin level was elevated at 9.03 supportive of an underlying bacterial infection. Initial lactic acid level was at 3.6 dropped down to 2.3. The patient is currently on high flow oxygen at 10 L/min nasal cannula. Review of Systems Constitutional: Reports fatigue, Reports fever, Reports weakness Eyes: denies as per HPI, denies blurred vision, denies bulging eye, denies decreased vision, denies diplopia, denies discharge, denies dry eye, denies irritation, denies itching, denies pain, denies photophobia, denies loss of peripheral vision, denies loss of vision, denies tunnel vision/blind spots Ears: deny: decreased hearing, ear discharge, earache, tinnitus Ears, nose, mouth and throat: Reports as per HPI Breasts: absent: as per HPI, gynecomastia Cardiovascular: Reports decreased exercise tolerance, Reports dyspnea on exertion Respiratory: Reports cough, Reports dyspnea, Reports home oxygen, Reports wheezing Gastrointestinal: Reports diarrhea Genitourinary: Reports as per HPI Musculoskeletal: Reports as per HPI Musculoskeletal: absent: ankle pain, ankle stiffness, ankle swelling, as per HPI, elbow pain, elbow stiffness, elbow swelling, foot pain, foot stiffness, foot swelling, hand pain, hand stiffness, hand swelling, hip pain, hip stiffness, hip swelling, knee pain, knee stiffness, knee swelling, shoulder pain, shoulder stiffness, shoulder swelling, wrist pain, wrist stiffness, wrist swelling Integumentary: Reports as per HPI Neurological: Reports as per HPI Psychiatric: Reports as per HPI Endocrine: Reports as per HPI, Reports fatigue Hematologic/Lymphatic: Reports as per HPI Allergic/Immunologic: Reports as per HPI Past Medical History Past Medical History: Coronary Artery Disease (CAD), COPD, Hyperlipidemia, Hypertension, Myocardial Infarction (CT) Additional Past Medical History / Comment(s): difficulty breathing due to congestion, pt had frequent harsh loose cough while doing pat assessment. sta jose guadalupe he's awaiting delviery of home O2. pt not sure if he's to wear atc or not at this time. Last Myocardial Infarction Date:: 30-40 yrs ago History of Any Multi-Drug Resistant Organisms: None Reported Past Surgical History: Back Surgery, Heart Catheterization With Stent, Orthopedic Surgery Additional Past Surgical History / Comment(s): rt shoulder rotator cuff repair Past Anesthesia/Blood Transfusion Reactions: No Reported Reaction Date of Last Stent Placement:: unk Past Psychological History: No Psychological Hx Reported Smoking Status: Former smoker Past Alcohol Use History: Occasional Additional Past Alcohol Use History / Comment(s): quit 20 yrs ago, Past Drug Use History: None Reported - Past Family History Father Family Medical History: Cancer Mother Family Medical History: Cancer Brother(s) Family Medical History: Cancer Medications and Allergies Home Medications Medication Instructions Recorded Confirmed Type Fluticasone/Umeclidin/Vilanter 1 puff INHALATION RT-DAILY 06/02/23 03/11/24 History [Trelegy Ellipta 200-62.5-25] Metoprolol Succinate [Metoprolol 25 mg PO DAILY 06/02/23 03/11/24 History Succinate ER] Montelukast [Singulair] 10 mg PO DAILY 06/02/23 03/11/24 History Simvastatin 40 mg PO HS 06/02/23 03/11/24 History lisinopriL [Zestril] 10 mg PO BID 06/02/23 03/11/24 History Eszopiclone [Lunesta] 3 mg PO HS 03/11/24 03/11/24 History Furosemide [Lasix] 40 mg PO DAILY 03/11/24 03/11/24 History Semaglutide [Wegovy] 2.4 mg SQ MO 03/11/24 03/11/24 History predniSONE 10 mg PO DAILY 03/11/24 03/11/24 History Allergies Allergy/AdvReac Type Severity Reaction Status Date / Time No Known Allergies Allergy Verified 03/11/24 17:12 Physical Exam Vitals: Vital Signs Temp Pulse Pulse Resp BP BP Pulse Ox 03/12/24 03:42 100 18 114/57 98 03/12/24 03:15 03/12/24 00:30 97/53 03/11/24 23:29 92 20 87/52 98 03/11/24 20:56 97.6 F 98 19 103/58 97 03/11/24 16:53 97.4 F L 101 H 18 102/54 98 03/11/24 16:34 03/11/24 16:22 98.4 F 96 20 90/54 97 03/11/24 16:02 100 22 88/53 97 03/11/24 14:45 105 H 22 107/59 97 03/11/24 14:15 109 H 22 103/60 98 03/11/24 14:12 110 H 20 104/90 96 03/11/24 13:34 113 H 26 H 90/61 97 03/11/24 13:28 98.6 F 118 H 25 H 86/59 93 L 03/11/24 12:23 131 H 26 H 82/60 95 03/11/24 12:12 129 H 32 H 85/59 90 L 03/11/24 12:07 131 H 28 H 78/52 96 03/11/24 12:00 124 H 03/11/24 11:55 126 H 30 H 91/68 94 L 03/11/24 11:43 128 H 03/11/24 11:33 03/11/24 11:32 03/11/24 11:30 128 H 34 H 89/69 95 03/11/24 11:22 100.8 F H 134 H 30 H 133/100 74 L FiO2 03/12/24 03:42 03/12/24 03:15 50 03/12/24 00:30 03/11/24 23:29 03/11/24 20:56 03/11/24 16:53 03/11/24 16:34 50 03/11/24 16:22 03/11/24 16:02 03/11/24 14:45 03/11/24 14:15 03/11/24 14:12 03/11/24 13:34 03/11/24 13:28 03/11/24 12:23 03/11/24 12:12 03/11/24 12:07 03/11/24 12:00 03/11/24 11:55 03/11/24 11:43 03/11/24 11:33 50 03/11/24 11:32 50 03/11/24 11:30 03/11/24 11:22 Intake and Output 03/11/24 03/12/24 03/12/24 22:59 06:59 14:59 Intake Total 120 Output Total 275 Balance -155 Intake: Oral 120 Output: Urine 275 Other: Voiding Method Urinal Urinal Weight 89.811 kg 91.4 kg The patient appeared well nourished and normally developed. Vital signs as documented. The patient is currently on 2 L O2 nasal cannula with a body mass index of 31.6 Head exam is unremarkable. No scleral icterus or corneal arcus noted. Neck is without jugular venous distension, thyromegaly, or carotid bruits. Carotid upstrokes are brisk bilaterally. Lungs diminished breath sound bilateral lung with diffuse expiratory wheezes throughout the lung li and the patient has crackles lung bases bilaterally. Cardiac exam reveals the PMI to be normally sized and situated. Rhythm is regular. First and second heart sounds normal. No murmurs, rubs or gallops. Abdominal exam reveals normal bowel sounds, no masses, no organomegaly and no aortic enlargement. Extremities are nonedematous and both femoral and pedal pulses are normal. Examination of the skin revealed no evidence of significant rashes, suspicious appearing nevi or other concerning lesions. Neurologically, the patient is awake and alert and the patient does not have any focal neurological deficit. Cranial nerves are essentially intact. Results - Laboratory Findings CBC and BMP: 03/12/24 08:32 03/12/24 08:32 ABG ABG pH 7.34 (7.35-7.45) L 03/11/24 12:32 ABG pCO2 45 mmHg (35-45) 03/11/24 12:32 ABG pO2 76 mmHg (83-108) L 03/11/24 12:32 ABG O2 Saturation 94.9 % (94-97) 03/11/24 12:32 PT/INR, D-dimer PT 10.8 sec (10.0-12.5) 03/11/24 11:45 INR 1.0 (<1.2) 03/11/24 11:45 D-Dimer 5.43 mg/L FEU (<0.60) H 03/11/24 11:45 Abnormal lab findings: Abnormal Labs 03/11/24 03/11/24 03/11/24 11:45 11:45 11:45 WBC 12.3 H MCV 102.9 H Neutrophils # (Manual) 10.50 H Lymphocytes # (Manual) 0.62 L Monocytes # (Manual) 1.11 H APTT 19.9 L D-Dimer ABG pH ABG pO2 ABG Total CO2 BUN 34 H Creatinine 1.27 H Glucose 123 H Plasma Lactic Acid Miko Troponin I Procalcitonin SARS-CoV-2 (PCR) 03/11/24 03/11/24 03/11/24 11:45 11:45 11:45 WBC MCV Neutrophils # (Manual) Lymphocytes # (Manual) Monocytes # (Manual) APTT D-Dimer 5.43 H ABG pH ABG pO2 ABG Total CO2 BUN Creatinine Glucose Plasma Lactic Acid Miko 2.7 H* Troponin I 0.096 H* Procalcitonin SARS-CoV-2 (PCR) 03/11/24 03/11/24 03/11/24 12:12 12:32 14:27 WBC MCV Neutrophils # (Manual) Lymphocytes # (Manual) Monocytes # (Manual) APTT D-Dimer ABG pH 7.34 L ABG pO2 76 L ABG Total CO2 26 H BUN Creatinine Glucose Plasma Lactic Acid Miko 3.0 H* Troponin I Procalcitonin SARS-CoV-2 (PCR) Detected A 03/11/24 03/11/24 03/11/24 16:09 16:09 19:05 WBC MCV Neutrophils # (Manual) Lymphocytes # (Manual) Monocytes # (Manual) APTT D-Dimer ABG pH ABG pO2 ABG Total CO2 BUN Creatinine Glucose Plasma Lactic Acid Miko Troponin I 0.122 H* 0.096 H* Procalcitonin 9.03 H SARS-CoV-2 (PCR) 03/11/24 03/11/24 03/12/24 19:05 21:51 01:07 WBC MCV Neutrophils # (Manual) Lymphocytes # (Manual) Monocytes # (Manual) APTT D-Dimer ABG pH ABG pO2 ABG Total CO2 BUN Creatinine Glucose Plasma Lactic Acid Miko 2.4 H* 3.6 H* 2.3 H* Troponin I Procalcitonin SARS-CoV-2 (PCR) - Diagnostic Findings Chest x-ray: image reviewed CT scan - chest: image reviewed Assessment and Plan Plan: Acute hypoxic respiratory failure, currently on 10 L of oxygen by nasal cannula. The patient has COPD and this COPD is currently in acute exacerbation secondary to COVID-19 infection with a bacterial superinfection as the patient has consolidative changes specially in the left lower lobe. Acute COVID-19 infection, vaccinated in the past. This is his first infection with a virus. Bilateral lower lobe pneumonia, likely bacterial with elevated procalcitonin level. The patient has significant consolidation lung base bilaterally more so on the left Shortness of breath acute on chronic secondary to above Coronary disease with remote history of myocardial infarction occurred more than 25 years ago. Obesity with a BMI of 31.6 Hypertension Hyperlipidemia Limited diarrhea probably due to COVID-19, improving Plan Obtain sputum Gram stain and culture Obtain blood cultures Continue Rocephin and Zithromax Check Legionella urine antigen Continue Decadron Titrate oxygen flow to maintain saturation above 90% Continue combination of Symbicort and Spiriva as a replacement for his Trelegy Ellipta that he utilized on outpatient basis Albuterol HFA 4 times a day [id number] Will continue to follow
[2024-03-12 16:36] LABS: Glucose,Whole Blood 204 mg/dL (70-110)
[2024-03-12 19:51] LABS: Glucose,Whole Blood 162 mg/dL (70-110)
[2024-03-13 06:03] LABS: Glucose,Whole Blood 152 mg/dL (70-110)
[2024-03-13 07:29] LABS: Basophils % (A) 0 %; Eosinophils % (A) 0 %; HCT 39.2 % (39.0-53.0); HGB 12.4 gm/dL (13.0-17.5); Hypochromasia Moderate; Lymphocytes # (A) 0.3 k/uL (1.0-4.8); Lymphocytes % (A) 2 %; MCH 33.8 pg (25.0-35.0); MCHC 31.7 g/dL (31.0-37.0); MCV 106.6 fL (80.0-100.0); Macrocytosis Moderate; Mean Platelet Volume 7.8; Monocytes # (A) 0.7 k/uL (0-1.0); Monocytes % (A) 5 %; Neutrophils % (A) 91 %; Platelet Count 135 k/uL (150-450); RBC 3.68 m/uL (4.30-5.90); RDW 14.5 % (11.5-15.5); WBC 13.2 k/uL (3.8-10.6)
[2024-03-13 07:38] LABS: African American GFR (CKD) 82 (>60 ml/min/1.73 sqM); Anion Gap 3 mmol/L; Blood Urea Nitrogen 41 mg/dL (9-20); Calcium 8.7 mg/dL (8.4-10.2); Carbon Dioxide 28 mmol/L (22-30); Chloride 109 mmol/L (98-107); Glucose 140 mg/dL (74-99); Non-African American GFR(CKD) 71 (>60 ml/min/1.73 sqM); Potassium 5.3 mmol/L (3.5-5.1); Sodium 140 mmol/L (137-145)
[2024-03-13] MEDS: BENZONATATE 100 MG CAP PO PRN (10:25)
[2024-03-13] MEDS: guaiFENesin-DM 100-10MG/5ML 10 ML CUP PO PRN (10:25)
--- NOTE | 2024-03-13 12:19 | P.PN ---
Subjective Progress Note Date: 03/13/24 On 03/12/2024, this patient is being seen in consultation note for increased dy spnea. The patient is known to have COPD and the patient is O2 dependent maintained on oxygen 2 L/min nasal cannula. He is a former smoker and quit smoking approximately 20 years ago. He used to live in [facility] and is recently located to [place]. The patient is known to have hypertension hyperlipidemia previous history of myocardial infarction that occurred more than 20 years ago. He came with symptoms of URI and subsequently developed cough and congestion and chest tightness and wheezing and he developed acute COPD exacerbation. In the hospital, chest x-ray was done and showed some atelectatic changes in lung base bilaterally. His white cell count was at 12.3 with hemoglobin 16.1 and a platelet count of 176. Normal coagulation profile. D-dimer is at 5.4. Electrolytes are all within normal limits with a BUN of 34 and a creatinine of 1.2. He did have a low-grade fever at time of admission with a temperature of 100.8 and currently is afebrile. He tested positive for COVID-19 infection. No previous infections with a virus. Based on that, the patient was started on Decadron. He was also given a CT of the chest that showed no evidence of any pulmonary embolism. Nevertheless, the CAT scan showed multifocal consolidative changes in the lung bases worse in the left lung base and this is more suggestive of bacterial infection. Another 11 mm nodule was seen in the left mi dlung and this needs to be followed up on an outpatient basis following his pneumonia treatment. Based on his consolidative changes, the patient was started on broad-spectrum antibiotics and is currently on a combination of Rocephin and Zithromax. The procalcitonin level was elevated at 9.03 supportive of an underlying bacterial infection. Initial lactic acid level was at 3.6 dropped down to 2.3. The patient is currently on high flow oxygen at 10 L/min nasal cannula. On 03/13/2024, the patient is being seen for a follow-up. The patient is doing well. Oxygenation has improved slightly and the patient has been weaned down to 3 L of oxygen by nasal cannula. Continues to have cough and congestion and some degree of wheezing. Noted the patient has an infection with COVID-19 antibacterial superinfection was also suspected as the patient's procalcitonin level was elevated at 9.0 at the time of admission and the CAT scan of the chest also showed lower lobe consolidation suggestive of bacterial infection. Based on that, the patient was given a combination of Rocephin and Zithromax and the procalcitonin level has been declining and is currently down to 7. Remains on Decadron. No altered mentation. No chest pain. No nausea vomiting or diarrhea. No other complaints otherwise. Objective - Vital Signs Vital signs: Vital Signs Temp 98.5 F 03/13/24 07:45 Pulse 100 03/13/24 07:45 Resp 20 03/13/24 07:45 BP 128/74 03/13/24 07:45 Pulse Ox 94 L 03/13/24 08:59 FiO2 50 03/12/24 03:15 Intake & Output 03/12/24 03/13/24 03/13/24 18:59 06:59 18:59 Intake Total 360 0 118 Output Total 0 Balance 360 0 118 Weight 91.5 kg Intake: Oral 360 0 118 Output: Gastric Drainage 0 Urine 0 Stool 0 Urine/Stool Mix 0 Emesis 0 Oral Regurgitation 0 Other 0 Other: Voiding Method Urinal Urinal # Voids 0 2 # Bowel Movements 0 0 - Exam The patient appeared well nourished and normally developed. Vital signs as documented. The patient is currently on 3 L O2 nasal cannula with a body mass index of 31.6 Head exam is unremarkable. No scleral icterus or corneal arcus noted. Neck is without jugular venous distension, thyromegaly, or carotid bruits. Carotid upstrokes are brisk bilaterally. Lungs diminished breath sound bilateral lung with diffuse expiratory wheezes throughout the lung li and the patient has crackles lung bases bilaterally. Cardiac exam reveals the PMI to be normally sized and situated. Rhythm is regular. First and second heart sounds normal. No murmurs, rubs or gallops. Abdominal exam reveals normal bowel sounds, no masses, no organomegaly and no aortic enlargement. Extremities are nonedematous and both femoral and pedal pulses are normal. Examination of the skin revealed no evidence of significant rashes, suspicious appearing nevi or other concerning lesions. Neurologically, the patient is awake and alert and the patient does not have any focal neurological deficit. Cranial nerves are essentially intact. - Labs CBC & Chem 7: 03/13/24 07:11 03/13/24 07:11 Labs: Abnormal Lab Results - Last 24 Hours (Table) 03/12/24 03/12/24 03/12/24 Range/Units 08:32 08:32 11:10 WBC 11.9 H (3.8-10.6) k/uL RBC 3.90 L (4.30-5.90) m/uL Hgb (13.0-17.5) gm/dL MCV 105.3 H (80.0-100.0) fL Plt Count 135 L (150-450) k/uL Neutrophils # 11.0 H (1.3-7.7) k/uL Lymphocytes # 0.3 L (1.0-4.8) k/uL Potassium (3.5-5.1) mmol/L Chloride (98-107) mmol/L BUN 43 H (9-20) mg/dL Creatinine 1.69 H (0.66-1.25) mg/dL Glucose 165 H (74-99) mg/dL POC Glucose (mg/dL) (70-110) mg/dL Calcium 8.2 L (8.4-10.2) mg/dL Procalcitonin 7.09 H (0.02-0.50) ng/mL 03/12/24 03/12/24 03/12/24 Range/Units 11:37 16:34 19:49 WBC (3.8-10.6) k/uL RBC (4.30-5.90) m/uL Hgb (13.0-17.5) gm/dL MCV (80.0-100.0) fL Plt Count (150-450) k/uL Neutrophils # (1.3-7.7) k/uL Lymphocytes # (1.0-4.8) k/uL Potassium (3.5-5.1) mmol/L Chloride (98-107) mmol/L BUN (9-20) mg/dL Creatinine (0.66-1.25) mg/dL Glucose (74-99) mg/dL POC Glucose (mg/dL) 129 H 204 H 162 H (70-110) mg/dL Calcium (8.4-10.2) mg/dL Procalcitonin (0.02-0.50) ng/mL 03/13/24 03/13/24 03/13/24 Range/Units 05:58 07:11 07:11 WBC 13.2 H (3.8-10.6) k/uL RBC 3.68 L (4.30-5.90) m/uL Hgb 12.4 L (13.0-17.5) gm/dL MCV 106.6 H (80.0-100.0) fL Plt Count 135 L (150-450) k/uL Neutrophils # 12.0 H (1.3-7.7) k/uL Lymphocytes # 0.3 L (1.0-4.8) k/uL Potassium 5.3 H (3.5-5.1) mmol/L Chloride 109 H (98-107) mmol/L BUN 41 H (9-20) mg/dL Creatinine (0.66-1.25) mg/dL Glucose 140 H (74-99) mg/dL POC Glucose (mg/dL) 152 H (70-110) mg/dL Calcium (8.4-10.2) mg/dL Procalcitonin (0.02-0.50) ng/mL Microbiology - Last 24 Hours (Table) 03/11/24 11:45 Blood Culture - Preliminary Blood 03/11/24 21:30 Gram Stain - Preliminary Sputum Assessment and Plan Plan: Acute hypoxic respiratory failure, currently on 10 L of oxygen by nasal cannula. The patient has COPD and this COPD is currently in acute exacerbation secondary to COVID-19 infection with a bacterial superinfection as the patient has consolidative changes specially in the left lower lobe. The patient had elevated procalcitonin level of 9 at time of admission and the procalcitonin level is dropped down to 7. The patient is currently on a combination of Rocephin and Zithromax. Oxygen requirements improved and the patient is currently down to 3 L of oxygen by nasal cannula. Acute COVID-19 infection, vaccinated in the past. This is his first infection with a virus. Bilateral lower lobe pneumonia, likely bacterial with elevated procalcitonin level. The patient has significant consolidation lung base bilaterally more so on the left Shortness of breath acute on chronic secondary to above Coronary disease with remote history of myocardial infarction occurred more than 25 years ago. Obesity with a BMI of 31.6 Hypertension Hyperlipidemia Limited diarrhea probably due to COVID-19, improving Plan Obtain sputum Gram stain and culture, results are still pending Obtain blood cultures Continue Rocephin and Zithromax Check Legionella urine antigen Continue Decadron Procalcitonin levels is improving Add Robitussin DM for cough and congestion Titrate oxygen flow to maintain saturation above 90% Continue combination of Symbicort and Spiriva as a replacement for his Trelegy Ellipta that he utilized on outpatient basis Albuterol HFA 4 times a day [id number] Will continue to follow
--- NOTE | 2024-03-13 12:54 | P.PN ---
Subjective Progress Note Date: 03/13/24 Subjective: Patient seen and examined at bedside. No acute events overnight. Complaining of some nonproductive cough. Also had a 9-second run of nonsustained VT. Pertinent positives and negatives as discussed above, a complete review of systems was performed and all other systems are negative. Vitals Signs Reviewed. General: Nontoxic, no distress, appears at stated age, chronically ill-appearing Derm: Warm, dry Head: Atraumatic, normocephalic, symmetric Eyes: EOMI, no lid lag, anicteric sclera Mouth: No lip lesion, mucus membranes moist Cardiovascular: S1S2 reg, no murmurs Lungs: Bilateral rales, no accessory muscle use, supplemental oxygen Abdominal: Soft, nontender to palpation, no guarding, no appreciable organomegaly Ext: No gross muscle atrophy, trace peripheral edema, no contractures Neuro: CN II-XI grossly intact, no focal neuro deficits Psych: Alert, oriented, appropriate affect Data Reviewed Today: Pertinent Labs: WBC 13.2, hemoglobin 12.4, platelet 135, potassium 5.3, creatinine 1.07, blood sugars range between 142 162, magnesium 2.2 Imaging: No new imaging Assessment and Plan: Active: Acute on chronic hypoxic respiratory failure Acute COPD exacerbation Acute COVID-19 pneumonia Sepsis secondary to superimposed bacterial pneumonia -Continue albuterol inhaler as needed, Symbicort twice daily, Spiriva daily, Decadron 6 mg IV daily -Continue ceftriaxone 2 g IV every 24 hours, azithromycin oral 500 daily -Pulmonology note reviewed, continue current therapy Type II NSTEMI Nonsustained VT -Continue to monitor BMP and magnesium -Continue telemetry -No active chest pain -Continue home metoprolol 25 daily, aspirin 81 mg, atorvastatin 20 mg daily Mild hyperkalemia -Continue to monitor -Should improve with bronchodilators Type 2 diabetes -Sliding scale insulin, monitor for hypoglycemia Resolved: Acute kidney injury-hold lisinopril Lactic acidosis-continue to hold diuretics Chronic: Dyslipidemia Hypertension History of CAD History of HFpEF DVT ppx: Subcu heparin Code status: Full code Anticipated discharge place: Pending clinical course Anticipated discharge time: Pending clinical course Objective - Vital Signs Vital signs: Vital Signs Temp 98.5 F 03/13/24 07:45 Pulse 100 03/13/24 07:45 Resp 20 03/13/24 07:45 BP 128/74 03/13/24 07:45 Pulse Ox 96 03/13/24 12:03 FiO2 50 03/12/24 03:15 Intake & Output 03/12/24 03/13/24 03/13/24 18:59 06:59 18:59 Intake Total 360 0 118 Output Total 0 Balance 360 0 118 Weight 91.5 kg Intake: Oral 360 0 118 Output: Gastric Drainage 0 Urine 0 Stool 0 Urine/Stool Mix 0 Emesis 0 Oral Regurgitation 0 Other 0 Other: Voiding Method Urinal Urinal Urinal # Voids 0 2 # Bowel Movements 0 0 - Labs CBC & Chem 7: 03/13/24 07:11 03/13/24 07:11 Labs: Abnormal Lab Results - Last 24 Hours (Table) 03/12/24 03/12/24 03/12/24 Range/Units 11:10 16:34 19:49 WBC (3.8-10.6) k/uL RBC (4.30-5.90) m/uL Hgb (13.0-17.5) gm/dL MCV (80.0-100.0) fL Plt Count (150-450) k/uL Neutrophils # (1.3-7.7) k/uL Lymphocytes # (1.0-4.8) k/uL Potassium (3.5-5.1) mmol/L Chloride (98-107) mmol/L BUN (9-20) mg/dL Glucose (74-99) mg/dL POC Glucose (mg/dL) 204 H 162 H (70-110) mg/dL Procalcitonin 7.09 H (0.02-0.50) ng/mL 03/13/24 03/13/24 03/13/24 Range/Units 05:58 07:11 07:11 WBC 13.2 H (3.8-10.6) k/uL RBC 3.68 L (4.30-5.90) m/uL Hgb 12.4 L (13.0-17.5) gm/dL MCV 106.6 H (80.0-100.0) fL Plt Count 135 L (150-450) k/uL Neutrophils # 12.0 H (1.3-7.7) k/uL Lymphocytes # 0.3 L (1.0-4.8) k/uL Potassium 5.3 H (3.5-5.1) mmol/L Chloride 109 H (98-107) mmol/L BUN 41 H (9-20) mg/dL Glucose 140 H (74-99) mg/dL POC Glucose (mg/dL) 152 H (70-110) mg/dL Procalcitonin (0.02-0.50) ng/mL Microbiology - Last 24 Hours (Table) 03/11/24 11:45 Blood Culture - Preliminary Blood 03/11/24 21:30 Gram Stain - Preliminary Sputum
[2024-03-13 17:09] LABS: Glucose,Whole Blood 172 mg/dL (70-110)
[2024-03-13 17:09] LABS: Glucose,Whole Blood 147 mg/dL (70-110)
[2024-03-13] MEDS: ZOLPIDEM 5 MG TAB PO SCH (21:51)
[2024-03-14 08:18] LABS: Basophils % (A) 0 %; Eosinophils % (A) 0 %; HCT 40.1 % (39.0-53.0); HGB 13.1 gm/dL (13.0-17.5); Lymphocytes # (A) 0.3 k/uL (1.0-4.8); Lymphocytes % (A) 3 %; MCH 33.6 pg (25.0-35.0); MCHC 32.6 g/dL (31.0-37.0); MCV 102.9 fL (80.0-100.0); Macrocytosis Slight; Mean Platelet Volume 8.9; Monocytes # (A) 0.5 k/uL (0-1.0); Monocytes % (A) 4 %; Neutrophils # (A) 11.9 k/uL (1.3-7.7); Neutrophils % (A) 92 %; Platelet Count 151 k/uL (150-450); RDW 14.9 % (11.5-15.5); WBC 12.9 k/uL (3.8-10.6)
[2024-03-14] MEDS: AZITHROMYCIN 500 MG TAB PO SCH (08:19)
--- NOTE | 2024-03-14 08:33 | XR ---
EXAMINATION TYPE: XR chest 1V portable DATE OF EXAM: 03/14/2024 5:14 AM COMPARISON: 03/12/2024 CLINICAL INDICATION: Male, 68 years old with history of covid pna, , FINDINGS: Heart borderline enlarged. Hyperinflation. Medium reticular opacities persist, right greater than lef t. Though the more patchy changes at the right base shows some improvement. No sizable pleural effusi on. IMPRESSION: COPD with ongoing interstitial infiltrates, right greater than left. Slight improvement in aeration a t the lower lungs. [facility], , 03/14/2024 8:31 AM
[2024-03-14 08:44] LABS: African American GFR (CKD) >90 (>60 ml/min/1.73 sqM); Anion Gap 4 mmol/L; Blood Urea Nitrogen 35 mg/dL (9-20); Carbon Dioxide 29 mmol/L (22-30); Chloride 107 mmol/L (98-107); Glucose 116 mg/dL (74-99); Non-African American GFR(CKD) 87 (>60 ml/min/1.73 sqM); Sodium 140 mmol/L (137-145)
[2024-03-14 08:59] LABS: Magnesium 2.2 mg/dL (1.6-2.3); Potassium 5.6 mmol/L (3.5-5.1)
[2024-03-14] MEDS: lisinopriL 10 MG TAB PO SCH (10:18)
[2024-03-14 11:24] LABS: Glucose,Whole Blood 114 mg/dL (70-110)
--- NOTE | 2024-03-14 14:28 | P.PN ---
Subjective Progress Note Date: 03/14/24 Principal diagnosis: Acute hypoxic respiratory failure secondary to COVID-pneumonia and superimposed community-acquired bacterial pneumonia On 03/12/2024, this patient is being seen in consultation note for increased dyspnea. The patient is known to have COPD and the patient is O2 dependent maintained on oxygen 2 L/min nasal cannula. He is a former smoker and quit smoking approximately 20 years ago. He used to live in [facility] and is recently located to [place]. The patient is known to have hypertension hyperlipidemia previous history of myocardial infarction that occurred more than 20 years ago. He came with symptoms of URI and subsequently developed cough and congestion and chest tightness and wheezing and he developed acute COPD exacerbation. In the hospital, chest x-ray was done and showed some atelectatic changes in lung base bilaterally. His white cell count was at 12.3 with hemoglobin 16.1 and a platelet count of 176. Normal coagulation profile. D-dimer is at 5.4. Electrolytes are all within normal limits with a BUN of 34 and a creatinine of 1.2. He did have a low-grade fever at time of admission with a temperature of 100.8 and currently is afebrile. He tested positive for COVID-19 infection. No previous infections with a virus. Based on that, the patient was started on Decadron. He was also given a CT of the chest that showed no evidence of any pulmonary embolism. Nevertheless, the CAT scan showed multifocal consolidative changes in the lung bases worse in the left lung base and this is more suggestive of bacterial infection. Another 11 mm nodule was seen in the left midlung and this needs to be followed up on an outpatient basis following his pneumonia treatment. Based on his consolidative changes, the patient was started on broad-spectrum antibiotics and is currently on a combination of Rocephin and Zithromax. The procalcitonin level was elevated at 9.03 supportive of an underlying bacterial infection. Initial lactic acid level was at 3.6 dropped down to 2.3. The patient is currently on high flow oxygen at 10 L/min nasal cannula. On 03/13/2024, the patient is being seen for a follow-up. The patient is doing well. Oxygenation has improved slightly and the patient has been weaned down to 3 L of oxygen by nasal cannula. Continues to have cough and congestion and some degree of wheezing. Noted the patient has an infection with COVID-19 antibacterial superinfection was also suspected as the patient's procalcitonin level was elevated at 9.0 at the time of admission and the CAT scan of the chest also showed lower lobe consolidation suggestive of bacterial infection. Based on that, the patient was given a combination of Rocephin and Zithromax and the procalcitonin level has been declining and is currently down to 7. Remains on Decadron. No altered mentation. No chest pain. No nausea vomiting or d iarrhea. No other complaints otherwise. Patient was today on 03/14/2024, feels better today, on oxygen at 4 L/min, does not seem to be in distress. Chest x-ray is showing COPD with improvement of his infiltrates specially in the lower lobes. WBC count is 12.9 hemoglobin is 13.1 potassium is 4.7 renal profile is normal electrolytes are normal patient remains on Decadron, remains on ceftriaxone, he is also on Zithromax. Improved but not back to baseline. Objective - Vital Signs Vital signs: Vital Signs Temp 98.3 F 03/14/24 12:00 Pulse 100 03/14/24 12:00 Resp 19 03/14/24 12:00 BP 166/85 03/14/24 12:00 Pulse Ox 92 L 03/14/24 12:00 FiO2 50 03/12/24 03:15 Intake & Output 03/13/24 03/14/24 03/14/24 18:59 06:59 18:59 Intake Total 572 20 138 Balance 572 20 138 Weight 91.5 kg Intake: IV 10 20 20 Invasive Line 2 10 20 20 Oral [id number] Other: Voiding Method Toilet Toilet Toilet Urinal Urinal Urinal # Voids 2 4 - Exam General: Revealed a 68-year-old white male in no distress Derm: Warm, no rashes Head: Atraumatic, normocephalic, symmetric Eyes: EOMI, no lid lag, anicteric sclera Mouth: No lip lesion, mucus membranes moist Cardiovascular: S1S2 reg, no murmurs Lungs: Fine crackles at the bases bilaterally no rhonchi no wheezes Abdominal: Soft nontender no rebound no guarding Ext: No gross muscle atrophy, trace peripheral edema, no contractures Neuro: Alert oriented x 3 no gross focal deficit Psych: Normal mood affect normal mental status examination - Labs CBC & Chem 7: 03/14/24 07:47 03/14/24 09:42 Labs: Abnormal Lab Results - Last 24 Hours (Table) 03/13/24 03/13/24 03/14/24 Range/Units 11:51 16:35 07:47 WBC 12.9 H (3.8-10.6) k/uL RBC 3.90 L (4.30-5.90) m/uL MCV 102.9 H (80.0-100.0) fL Neutrophils # 11.9 H (1.3-7.7) k/uL Lymphocytes # 0.3 L (1.0-4.8) k/uL Potassium (3.5-5.1) mmol/L BUN (9-20) mg/dL Glucose (74-99) mg/dL POC Glucose (mg/dL) 172 H 147 H (70-110) mg/dL 03/14/24 03/14/24 Range/Units 07:47 11:22 WBC (3.8-10.6) k/uL RBC (4.30-5.90) m/uL MCV (80.0-100.0) fL Neutrophils # (1.3-7.7) k/uL Lymphocytes # (1.0-4.8) k/uL Potassium 5.6 H (3.5-5.1) mmol/L BUN 35 H (9-20) mg/dL Glucose 116 H (74-99) mg/dL POC Glucose (mg/dL) 114 H (70-110) mg/dL Microbiology - Last 24 Hours (Table) 03/11/24 21:30 Gram Stain - Final Sputum Sputum Culture - Final 03/11/24 11:45 Blood Culture - Preliminary Blood 03/12/24 12:09 Gram Stain - Preliminary Sputum Assessment and Plan Assessment: Impression Acute hypoxic respiratory failure, [place] to acute COVID-19 pneumonia and suspected superimposed bacterial pneumonia considering his elevated procalcitonin level, and suspect underlying COPD with acute exacerbation of COPD Acute COVID-19 infection, vaccinated in the past. This is his first infection with a virus. Bilateral lower lobe pneumonia, likely bacterial with elevated procalcitonin level. X-ray is showing improvement Coronary disease with remote history of myocardial infarction occurred more than 25 years ago. Obesity with a BMI of 31.6 Hypertension Hyperlipidemia Limited diarrhea probably due to COVID-19, improving Plan Continue Decadron Continue Rocephin and Zithromax Continue Decadron Procalcitonin level is noted Supportive care measures and titrate oxygen accordingly Bronchodilators/continue Will continue to follow Time with Patient: Less than 30
--- NOTE | 2024-03-14 15:48 | P.PN ---
Subjective Progress Note Date: 03/14/24 Patient is a 68-year-old male with a past medical history significant for COPD on 2 L O2 at home, CHF with EF 55-60%, hypertension, hyperlipidemia, history of MO 25 years ago with 1 stent presented to the emergency department for dyspnea, nonbloody diarrhea, nonbloody emesis, and cough productive of brownish sputum since yesterday evening. He is accompanied by family at bedside. He states that he became acutely ill and dyspneic yesterday evening. Denies feeling unwell prior to that. He currently reports dyspnea and productive cough. Currently denies fever, chills, chest pain, abdominal pain, nausea, vomiting. He is currently on BiPAP saturating at 97%. Initial chest x-ray independently interpreted: Bilateral basilar infiltrates. Initial EKG independently interpreted: Sinus tachycardia with occasional PVCs. Initial labs: WBC 12.3, hemoglobin 16.1, MCV 102, platelets 176, PT 10.8, INR 1, APTT 19.9, D-dimer 5.43, sodium 140, potassium 3.8, chloride 104, CO2 26, BUN 34, creatinine 1.27, glucose 127, lactic acid 2.7, troponin X1 0.096. COVID- positive. Initial vitals: T 100.8 F, NC 134, RR 30, BP 133/100, O2 74% on room air. 03/12. Patient seen and examined at bedside. No acute events overnight. No significant complaints. Reports continued minimally productive cough and impro prema breathing. Denies fever, chills, chest pain, abdominal pain, nausea, vomiting. Labs today: WBCs 11.9, hemoglobin 13.2, MCV 105.3, platelets 135, sodium 140, potassium 4.6, chloride 107, CO2 22, BUN 43, creatinine 1.69, glucose 165, lactic acid 2.3, procalcitonin 9.03. Chest x-ray today indepe ndently interpreted: Worsened bilateral basilar infiltrates. Echo: LVEF 55-60%, mild mitral regurgitation, no pericardial effusion. 03/14. Patient seen and examined at bedside. No acute events overnight. Reports continued cough productive of brownish sputum. Denies chest pain, abdominal pain, fever, chills, nausea/vomiting.. Labs today: WBC 12.9, hemoglobin 13.1, sodium 140, potassium 4.7, chloride 107, CO2 29, BUN 35, creatinine 0.89, glucose 116. Chest x-ray independently interpreted: Unchanged bilateral basilar infiltrates Pertinent positives and negatives discussed above, a complete review of systems was performed and all the other systems were negative. Physical examination: Vital signs reviewed. Afebrile, episodes of tachypnea, hypertensive, 95% saturation on 2 L high flow cannula General: No acute distress Derm: Warm, dry, intact Head: Atraumatic, normocephalic, symmetric Eyes: EOMI, anicteric sclera Mouth: No lip lesion, mucus membranes moist Cardiovascular: Heart sounds distant Lungs: Bilateral expiratory rhonchi, shallow breathing, use of accessory muscles Abdominal: Soft, non-tender to palpation Extremities: No cyanosis, clubbing, 1+ pitting edema bilaterally to the knee Neuro: Alert, oriented x 3, gross neurological examination did not reveal any focal deficits. Cranial nerves II to XII grossly intact. Psych: Appropriate affect and mood Assessment and Plan: Patient is a 68-year-old male with past medical history significant for COPD on 2 L home O2, CHF with EF 55-60%, hypertension, hyperlipidemia, history of MO 25 years ago with 1 stent admitted for COVID pneumonia. Active #. Acute COVID pneumonia #. Acute on chronic hypoxic respiratory failure #. Acute COPD exacerbation #. Sepsis, secondary to superimposed bacterial pneumonia Continue to wean oxygen as tolerated IV Decadron 6 mg daily for 10 days total Oxygen supplementation as needed to maintain oxygen >88% Ventolin HFA every 4 hours as needed IV ceftriaxone 2 g Zithromax 500 mg PO daily Ventolin HFA inhaler every 4 hours as needed Robitussin DM 10 mL PO every 6 hours as needed Spiriva daily Pulmonology following Sputum cultures negative Blood cultures pending final #. NSTEMI, likely type II Troponins X3 0.096, 0.122, 0.096 Echo: LVEF 55-60%, mild mitral regurgitation, no pericardial effusion Telemetry monitoring Aspirin and statin restarted Resolved #. Hyperkalemia Chronic #. CHF with EF 55-60%, not in acute exacerbation #. CAD #. Hypertension #. History of MO 25 years ago with 1 stent #. Hyperlipidemia Hold lisinopril due to hypotensive episodes Aspirin 81 mg PO daily #. Chronic kidney disease stage III DVT prophylaxis: Subcutaneous heparin every 8 hours Code status: Full code Anticipated discharge place: Home I have seen and evaluated the patient today. Discussed with the resident and agree with the residents finding and plan as documented in the resident's note. Changes highlighted in blue font. Objective - Vital Signs Vital signs: Vital Signs Temp 97.9 F 03/14/24 04:00 Pulse 100 03/14/24 04:00 Resp 18 03/14/24 04:00 BP 159/85 03/14/24 04:00 Pulse Ox 95 03/14/24 04:00 FiO2 50 03/12/24 03:15 Intake & Output 03/13/24 03/14/24 03/14/24 18:59 06:59 18:59 Intake Total 572 20 Balance 572 20 Weight 91.5 kg Intake: IV 10 20 Invasive Line 2 10 20 Oral 562 Other: Voiding Method Toilet Toilet Urinal Urinal # Voids 2 4 - Labs CBC & Chem 7: 03/14/24 07:47 03/14/24 09:42 Labs: Abnormal Lab Results - Last 24 Hours (Table) 03/12/24 03/13/24 03/13/24 Range/Units 11:10 07:11 07:11 WBC 13.2 H (3.8-10.6) k/uL RBC 3.68 L (4.30-5.90) m/uL Hgb 12.4 L (13.0-17.5) gm/dL MCV 106.6 H (80.0-100.0) fL Plt Count 135 L (150-450) k/uL Neutrophils # 12.0 H (1.3-7.7) k/uL Lymphocytes # 0.3 L (1.0-4.8) k/uL Potassium 5.3 H (3.5-5.1) mmol/L Chloride 109 H (98-107) mmol/L BUN 41 H (9-20) mg/dL Glucose 140 H (74-99) mg/dL POC Glucose (mg/dL) (70-110) mg/dL Procalcitonin 7.09 H (0.02-0.50) ng/mL 03/13/24 03/13/24 Range/Units 11:51 16:35 WBC (3.8-10.6) k/uL RBC (4.30-5.90) m/uL Hgb (13.0-17.5) gm/dL MCV (80.0-100.0) fL Plt Count (150-450) k/uL Neutrophils # (1.3-7.7) k/uL Lymphocytes # (1.0-4.8) k/uL Potassium (3.5-5.1) mmol/L Chloride (98-107) mmol/L BUN (9-20) mg/dL Glucose (74-99) mg/dL POC Glucose (mg/dL) 172 H 147 H (70-110) mg/dL Procalcitonin (0.02-0.50) ng/mL Microbiology - Last 24 Hours (Table) 03/11/24 11:45 Blood Culture - Preliminary Blood 03/12/24 12:09 Gram Stain - Preliminary Sputum 03/11/24 21:30 Gram Stain - Preliminary Sputum Sputum Culture - Preliminary
[2024-03-14 16:52] LABS: Glucose,Whole Blood 140 mg/dL (70-110)
[2024-03-15 07:04] LABS: Basophils % (A) 0 %; Eosinophils % (A) 0 %; HCT 41.7 % (39.0-53.0); HGB 13.2 gm/dL (13.0-17.5); Hypochromasia Slight; Lymphocytes # (A) 0.4 k/uL (1.0-4.8); Lymphocytes % (A) 4 %; MCH 32.9 pg (25.0-35.0); MCHC 31.6 g/dL (31.0-37.0); MCV 104.1 fL (80.0-100.0); Macrocytosis Slight; Mean Platelet Volume 7.9; Monocytes # (A) 0.8 k/uL (0-1.0); Monocytes % (A) 7 %; Neutrophils # (A) 9.7 k/uL (1.3-7.7); Neutrophils % (A) 88 %; Platelet Count 147 k/uL (150-450); RDW 14.4 % (11.5-15.5)
[2024-03-15 07:29] LABS: African American GFR (CKD) 89 (>60 ml/min/1.73 sqM); Anion Gap 2 mmol/L; Blood Urea Nitrogen 34 mg/dL (9-20); Carbon Dioxide 34 mmol/L (22-30); Chloride 104 mmol/L (98-107); Glucose 102 mg/dL (74-99); Non-African American GFR(CKD) 77 (>60 ml/min/1.73 sqM); Potassium 4.8 mmol/L (3.5-5.1); Sodium 140 mmol/L (137-145)
--- NOTE | 2024-03-15 12:20 | P.PN ---
Subjective Progress Note Date: 03/15/24 Subjective: Patient seen and examined at bedside. No acute events overnight. Planning for productive cough. Pertinent positives and negatives as discussed above, a complete review of systems was performed and all other systems are negative. Vitals Signs Reviewed. General: Nontoxic, no distress, appears at stated age, chronically ill-appearing Derm: Warm, dry Head: Atraumatic, normocephalic, symmetric Eyes: EOMI, no lid lag, anicteric sclera Mouth: No lip lesion, mucus membranes moist Cardiovascular: S1S2 reg, no murmurs Lungs: Bilateral rales, no accessory muscle use, supplemental oxygen Abdominal: Soft, nontender to palpation, no guarding, no appreciable organomegaly Ext: No gross muscle atrophy, trace peripheral edema, no contractures Neuro: CN II-XI grossly intact, no focal neuro deficits Psych: Alert, oriented, appropriate affect Data Reviewed Today: Pertinent Labs: WBC 11, hemoglobin 13.2, platelet 147, creatinine 0.99 Imaging: No new imaging Assessment and Plan: Active: Acute on chronic hypoxic respiratory failure Acute COPD exacerbation Acute COVID-19 pneumonia Sepsis secondary to superimposed bacterial pneumonia -Continue albuterol inhaler as needed, Symbicort twice daily, Spiriva daily, Decadron 6 mg IV daily -Continue ceftriaxone 2 g IV every 24 hours, azithromycin oral 500 daily -Pulmonology following -Continue to wean Oxygen, patient uses 2 L at home Type II NSTEMI Nonsustained VT, 1 episode -Continue to monitor BMP and magnesium -Continue telemetry -No active chest pain -Continue home metoprolol 25 daily, aspirin 81 mg, atorvastatin 20 mg daily Type 2 diabetes -Sliding scale insulin, monitor for hypoglycemia Resolved: Acute kidney injury Lactic acidosis-continue to hold diuretics Hyperkalemia Chronic: Dyslipidemia Hypertension History of CAD History of HFpEF DVT ppx: Subcu heparin Code status: Full code Anticipated discharge place: Pending clinical course Anticipated discharge time: Pending clinical course Objective - Vital Signs Vital signs: Vital Signs Temp 98.3 F 03/15/24 11:43 Pulse 95 03/15/24 11:43 Resp 21 03/15/24 11:43 BP 143/76 03/15/24 11:43 Pulse Ox 91 L 03/15/24 11:43 FiO2 50 03/12/24 03:15 Intake & Output 03/14/24 03/15/24 03/15/24 18:59 06:59 18:59 Intake Total 138 20 128 Balance 138 20 128 Weight 90.8 kg Intake: IV 20 20 10 Invasive Line 2 20 20 10 Oral [id number] Other: Voiding Method Toilet Toilet Toilet Urinal Urinal Urinal # Voids 5 - Labs CBC & Chem 7: 03/15/24 06:20 03/15/24 06:20 Labs: Abnormal Lab Results - Last 24 Hours (Table) 03/14/24 03/15/24 03/15/24 Range/Units 16:51 06:20 06:20 WBC 11.0 H (3.8-10.6) k/uL RBC 4.00 L (4.30-5.90) m/uL MCV 104.1 H (80.0-100.0) fL Plt Count 147 L (150-450) k/uL Neutrophils # 9.7 H (1.3-7.7) k/uL Lymphocytes # 0.4 L (1.0-4.8) k/uL Carbon Dioxide 34 H (22-30) mmol/L BUN 34 H (9-20) mg/dL Glucose 102 H (74-99) mg/dL POC Glucose (mg/dL) 140 H (70-110) mg/dL Microbiology - Last 24 Hours (Table) 03/12/24 12:09 Gram Stain - Final Sputum Sputum Culture - Final 03/11/24 11:45 Blood Culture - Preliminary Blood 03/11/24 21:30 Gram Stain - Final Sputum Sputum Culture - Final
--- NOTE | 2024-03-15 12:25 | P.PN ---
Subjective Progress Note Date: 03/15/24 Principal diagnosis: Acute hypoxic respiratory failure secondary to COVID-pneumonia and superimposed community-acquired bacterial pneumonia On 03/12/2024, this patient is being seen in consultation note for increased dyspnea. The patient is known to have COPD and the patient is O2 dependent maintained on oxygen 2 L/min nasal cannula. He is a former smoker and quit smoking approximately 20 years ago. He used to live in [facility] and is recently located to [place]. The patient is known to have hypertension hyperlipidemia previous history of myocardial infarction that occurred more than 20 years ago. He came with symptoms of URI and subsequently developed cough and congestion and chest tightness and wheezing and he developed acute COPD exacerbation. In the hospital, chest x-ray was done and showed some atelectatic changes in lung base bilaterally. His white cell count was at 12.3 with hemoglobin 16.1 and a platelet count of 176. Normal coagulation profile. D-dimer is at 5.4. Electrolytes are all within normal limits with a BUN of 34 and a creatinine of 1.2. He did have a low-grade fever at time of admission with a temperature of 100.8 and currently is afebrile. He tested positive for COVID-19 infection. No previous infections with a virus. Based on that, the patient was started on Decadron. He was also given a CT of the chest that showed no evidence of any pulmonary embolism. Nevertheless, the CAT scan showed multifocal consolidative changes in the lung bases worse in the left lung base and this is more suggestive of bacterial infection. Another 11 mm nodule was seen in the left midlung and this needs to be followed up on an outpatient basis following his pneumonia treatment. Based on his consolidative changes, the patient was started on broad-spectrum antibiotics and is currently on a combination of Rocephin and Zithromax. The procalcitonin level was elevated at 9.03 supportive of an underlying bacterial infection. Initial lactic acid level was at 3.6 dropped down to 2.3. The patient is currently on high flow oxygen at 10 L/min nasal cannula. On 03/13/2024, the patient is being seen for a follow-up. The patient is doing well. Oxygenation has improved slightly and the patient has been weaned down to 3 L of oxygen by nasal cannula. Continues to have cough and congestion and some degree of wheezing. Noted the patient has an infection with COVID-19 antibacterial superinfection was also suspected as the patient's procalcitonin level was elevated at 9.0 at the time of admission and the CAT scan of the chest also showed lower lobe consolidation suggestive of bacterial infection. Based on that, the patient was given a combination of Rocephin and Zithromax and the procalcitonin level has been declining and is currently down to 7. Remains on Decadron. No altered mentation. No chest pain. No nausea vomiting or d iarrhea. No other complaints otherwise. Patient was today on 03/14/2024, feels better today, on oxygen at 4 L/min, does not seem to be in distress. Chest x-ray is showing COPD with improvement of his infiltrates specially in the lower lobes. WBC count is 12.9 hemoglobin is 13.1 potassium is 4.7 renal profile is normal electrolytes are normal patient remains on Decadron, remains on ceftriaxone, he is also on Zithromax. Improved but not back to baseline. Seen today on 03/15/2024, patient is doing well, feeling better, breathing easier, nonetheless continues to have scattered rhonchi bilaterally. Feeling better but remains congested. Chest x-ray continues to show areas of multifocal infiltrates. Consistent with COVID-19 pneumonia. WBC count is 11 hemoglobin 13.2 electrolytes are normal BUN is 34 creatinine 0.99 Objective - Vital Signs Vital signs: Vital Signs Temp 98.3 F 03/15/24 11:43 Pulse 95 03/15/24 11:43 Resp 21 03/15/24 11:43 BP 143/76 03/15/24 11:43 Pulse Ox 91 L 03/15/24 11:43 FiO2 50 03/12/24 03:15 Intake & Output 03/14/24 03/15/24 03/15/24 18:59 06:59 18:59 Intake Total 138 20 128 Balance 138 20 128 Weight 90.8 kg Intake: IV 20 20 10 Invasive Line 2 20 20 10 Oral [id number] Other: Voiding Method Toilet Toilet Toilet Urinal Urinal Urinal # Voids 5 - Exam General: Revealed a 68-year-old white male in no distress Derm: Warm, no rashes Head: Atraumatic, normocephalic, symmetric Eyes: EOMI, no lid lag, anicteric sclera Mouth: No lip lesion, mucus membranes moist Cardiovascular: S1S2 reg, no murmurs Lungs: Scattered rhonchi noted bilaterally. More so on forced expiratory maneuver Abdominal: Soft nontender no rebound no guarding Ext: No gross muscle atrophy, trace peripheral edema, no contractures Neuro: Alert oriented x 3 no gross focal deficit Psych: Normal mood affect normal mental status examination - Labs CBC & Chem 7: 03/15/24 06:20 03/15/24 06:20 Labs: Abnormal Lab Results - Last 24 Hours (Table) 03/14/24 03/15/24 03/15/24 Range/Units 16:51 06:20 06:20 WBC 11.0 H (3.8-10.6) k/uL RBC 4.00 L (4.30-5.90) m/uL MCV 104.1 H (80.0-100.0) fL Plt Count 147 L (150-450) k/uL Neutrophils # 9.7 H (1.3-7.7) k/uL Lymphocytes # 0.4 L (1.0-4.8) k/uL Carbon Dioxide 34 H (22-30) mmol/L BUN 34 H (9-20) mg/dL Glucose 102 H (74-99) mg/dL POC Glucose (mg/dL) 140 H (70-110) mg/dL Microbiology - Last 24 Hours (Table) 03/12/24 12:09 Gram Stain - Final Sputum Sputum Culture - Final 03/11/24 11:45 Blood Culture - Preliminary Blood 03/11/24 21:30 Gram Stain - Final Sputum Sputum Culture - Final Assessment and Plan Assessment: Impression Acute hypoxic respiratory failure, [place] to acute COVID-19 pneumonia and suspected superimposed bacterial pneumonia considering his elevated procalcitonin level, and suspect underlying COPD with acute exacerbation of COPD Acute COVID-19 infection, vaccinated in the past. This is his first infection with a virus. Bilateral lower lobe pneumonia, likely bacterial with elevated procalcitonin level. X-ray is showing improvement Coronary disease with remote history of myocardial infarction occurred more than 25 years ago. Obesity with a BMI of 31.6 Hypertension Hyperlipidemia Limited diarrhea probably due to COVID-19, improving Plan Continue Decadron Continue Rocephin and Zithromax Continue Decadron Procalcitonin level is noted Supportive care measures and titrate oxygen accordingly Bronchodilators/continue Will continue to follow Time with Patient: Less than 30
--- NOTE | 2024-03-16 10:05 | P.PN ---
Subjective Progress Note Date: 03/16/24 No new complaints today. ongoing cough with brownish sputum production, ongoing dyspnea. Gen: In NAD, non-toxic HEENT: normocephalic, atraumatic, hearing acuity is intant, mucous membranes moist CVS: perfusing all extremities well, no pitting edema, Respiratory: symmetric chest expansion, no accessory muscle use, GI: soft, NTTP, ND, : no suprapubic tenderness, no CVA tenderness MSK/Derm: no rashes, cyanosis Neuro: CN II-XII intact, no motor weakness, Psych: cooperative, euthymic mood, judgment and insight is intact Hospital course: Patient is a 68-year-old male with a past medical history significant for COPD on 2 L O2 at home, CHF with EF 55-60%, hypertension, hyperlipidemia, history of [place] 25 years ago with 1 stent presented to the emergency department for dyspnea, nonbloody diarrhea, nonbloody emesis, and cough productive of brownish sputum. Initial chest x-ray independently interpreted: Bilateral basilar infiltrates. Initial EKG independently interpreted: Sinus tachycardia with occasional PVCs. Initial labs: WBC 12.3, hemoglobin 16.1, MCV 102, platelets 176, PT 10.8, INR 1, APTT 19.9, D-dimer 5.43, sodium 140, potassium 3.8, chloride 104, CO2 26, BUN 34, creatinine 1.27, glucose 127, lactic acid 2.7, troponin X1 0.096. COVID- positive. Initial vitals: T 100.8 F, NJ 134, RR 30, BP 133/100, O2 74% on room air. Pt was admitted ffor acute COPD exacerbation triggered by COVID-19. Tx with oxygen, abx, inhalers, and steroids. Assessment and Plan: Active: Acute on chronic hypoxic respiratory failure Acute COPD exacerbation, GOLD stage D (severe) Acute COVID-19 pneumonia Sepsis secondary to superimposed bacterial pneumonia -Continue albuterol inhaler as needed, Symbicort twice daily, Spiriva daily, Decadron 6 mg IV daily -Continue ceftriaxone 2 g IV every 24 hours, azithromycin oral 500 daily -Pulmonology following -Continue to wean Oxygen, patient uses 2 L at home Type II NSTEMI Nonsustained VT, 1 episode -Continue to monitor BMP and magnesium -Continue telemetry -No active chest pain -Continue home metoprolol 25 daily, aspirin 81 mg, atorvastatin 20 mg daily Type 2 diabetes -Sliding scale insulin, monitor for hypoglycemia Resolved: Acute kidney injury Lactic acidosis-continue to hold diuretics Hyperkalemia Chronic: Dyslipidemia Hypertension History of CAD History of HFpEF DVT ppx: Subcu heparin Code status: Full code Anticipated discharge place: Pending clinical course Anticipated discharge time: Pending clinical course Objective - Vital Signs Vital signs: Vital Signs Temp 98.7 F 03/16/24 01:31 Pulse 79 03/16/24 01:31 Resp 20 03/16/24 01:31 BP 162/84 03/16/24 01:31 Pulse Ox 97 03/16/24 01:31 FiO2 50 03/12/24 03:15 Intake & Output 03/15/24 03/16/24 03/16/24 18:59 06:59 18:59 Intake Total 256 1050 Balance 256 1050 Weight 90.5 kg Intake: IV 20 10 Invasive Line 2 20 10 Oral 236 1040 Other: Voiding Method Toilet Toilet Urinal Urinal # Voids 3 1 # Bowel Movements 1 - Labs CBC & Chem 7: 03/15/24 06:20 03/15/24 06:20 Labs: Microbiology - Last 24 Hours (Table) 03/12/24 12:09 Gram Stain - Final Sputum Sputum Culture - Final
--- NOTE | 2024-03-16 10:42 | P.PN ---
Subjective Progress Note Date: 03/16/24 On 03/12/2024, this patient is being seen in consultation note for increased dyspnea. The patient is known to have COPD and the patient is O2 dependent maintained on oxygen 2 L/min nasal cannula. He is a former smoker and quit smoking approximately 20 years ago. He used to live in [facility] and is recently located to [place]. The patient is known to have hypertension hyperlipidemia previous history of myocardial infarction that occurred more than 20 years ago. He came with symptoms of URI and subsequently developed cough and congestion and chest tightness and wheezing and he developed acute COPD exacerbation. In the hospital, chest x-ray was done and showed some atelectatic changes in lung base bilaterally. His white cell count was at 12.3 with hemoglobin 16.1 and a platelet count of 176. Normal coagulation profile. D-dimer is at 5.4. Electrolytes are all within normal limits with a BUN of 34 and a creatinine of 1.2. He did have a low-grade fever at time of admission with a temperature of 100.8 and currently is afebrile. He tested positive for COVID-19 infection. No previous infections with a virus. Based on that, the patient was started on Decadron. He was also given a CT of the chest that showed no evidence of any pulmonary embolism. Nevertheless, the CAT scan showed multifocal consolidative changes in the lung bases worse in the left lung base and this is more suggest iram of bacterial infection. Another 11 mm nodule was seen in the left midlung and this needs to be followed up on an outpatient basis following his pneumonia treatment. Based on his consolidative changes, the patient was started on broad-spectrum antibiotics and is currently on a combination of Rocephin and Zithromax. The procalcitonin level was elevated at 9.03 supportive of an underlying bacterial infection. Initial lactic acid level was at 3.6 dropped down to 2.3. The patient is currently on high flow oxygen at 10 L/min nasal cannula. On 03/13/2024, the patient is being seen for a follow-up. The patient is doing well. Oxygenation has improved slightly and the patient has been weaned down to 3 L of oxygen by nasal cannula. Continues to have cough and congestion and some degree of wheezing. Noted the patient has an infection with COVID-19 antibacterial superinfection was also suspected as the patient's procalcitonin level was elevated at 9.0 at the time of admission and the CAT scan of the chest also showed lower lobe consolidation suggestive of bacterial infection. Based on that, the patient was given a combination of Rocephin and Zithromax and the procalcitonin level has been declining and is currently down to 7. Remains on Decadron. No altered mentation. No chest pain. No nausea vomiting or diarrhea. No other complaints otherwise. Patient was today on 03/14/2024, feels better today, on oxygen at 4 L/min, does not seem to be in distress. Chest x-ray is showing COPD with improvement of his infiltrates specially in the lower lobes. WBC count is 12.9 hemoglobin is 13.1 potassium is 4.7 renal profile is normal electrolytes are normal patient remains on Decadron, remains on ceftriaxone, he is also on Zithromax. Improved but not back to baseline. Seen today on 03/15/2024, patient is doing well, feeling better, breathing easier, nonetheless continues to have scattered rhonchi bilaterally. Feeling better but remains congested. Chest x-ray continues to show areas of multifocal infiltrates. Consistent with COVID-19 pneumonia. WBC count is 11 hemoglobin 13.2 electrolytes are normal BUN is 34 creatinine 0.99 The patient is seen today March 16, 2024 in follow-up on the regular medical floor. He is currently sitting up in bed. Awake and alert in no acute distress. He is maintaining O2 saturations in the 90s on 4 L/min per nasal cannula. He is still coughing and quite congested. He remains on Decadron. Remains on Rocephin and azithromycin. Procalcitonin was 7.09. Blood and sputum cultures revealed no growth. He remains on Symbicort, Spiriva, albuterol. Heparin for DVT prophylaxis. Objective - Vital Signs Vital signs: Vital Signs Temp 98.7 F 03/16/24 01:31 Pulse 79 03/16/24 01:31 Resp 20 03/16/24 01:31 BP 162/84 03/16/24 01:31 Pulse Ox 97 03/16/24 01:31 FiO2 50 03/12/24 03:15 Intake & Output 03/15/24 03/16/24 03/16/24 18:59 06:59 18:59 Intake Total 256 1050 Balance 256 1050 Weight 90.5 kg Intake: IV 20 10 Invasive Line 2 20 10 Oral 236 1040 Other: Voiding Method Toilet Toilet Urinal Urinal # Voids 3 1 # Bowel Movements 1 - Exam GENERAL EXAM: Alert, pleasant 68-year-old male, on 4 L nasal cannula, fairly comfortable in no apparent distress. HEAD: Normocephalic. EYES: Normal reaction of pupils, equal size. NOSE: Clear with pink turbinates. THROAT: No erythema or exudates. NECK: No masses, no JVD. CHEST: No chest wall deformity. LUNGS: Equal air entry with bilateral scattered rhonchi. CVS: S1 and S2 normal with no audible murmur, regular rhythm. ABDOMEN: No hepatosplenomegaly, normal bowel sounds, no guarding or rigidity. SPINE: No scoliosis or deformity SKIN: No rashes CENTRAL NERVOUS SYSTEM: No focal deficits, tone is normal in all 4 extremities. EXTREMITIES: There is no peripheral edema. No clubbing, no cyanosis. Peripheral pulses are intact. - Labs CBC & Chem 7: 03/15/24 06:20 03/15/24 06:20 Labs: Microbiology - Last 24 Hours (Table) 03/12/24 12:09 Gram Stain - Final Sputum Sputum Culture - Final Assessment and Plan Assessment: Acute hypoxic respiratory failure, secondary to an acute COVID-19 pneumonia and suspected superimposed bacterial pneumonia considering his elevated procal citonin level, and suspect underlying COPD with acute exacerbation of COPD Acute COVID-19 infection, vaccinated in the past. This is his first infection with the virus Bilateral lower lobe pneumonia, likely bacterial with elevated procalcitonin level. X-ray is showing improvement Coronary disease with remote history of myocardial infarction occurred more than 25 years ago. Obesity with a BMI of 31.6 Hypertension Hyperlipidemia Limited diarrhea probably due to COVID-19, improving Plan: The patient was seen and evaluated Labs and medications reviewed Discontinue Decadron Initiate Solu-Medrol 60 mg every 6 hours Continue Symbicort, Spiriva, albuterol Continue ceftriaxone and azithromycin Robitussin and Tessalon for his cough Heparin for DVT prophylaxis Titrate down the FiO2 as tolerated Follow-up chest x-ray in a.m. We will continue to follow I have personally seen and examined the patient, performed the documentation and the assessment and plan as written. Number of minutes spent on the visit: 10 Dictation was produced using [employer] software. Please excuse any g rammatical, word or spelling errors.
[2024-03-16] MEDS: methylPREDNISolone SOD SUCCI 125 MG/2 ML VIAL IV SCH (12:19)
--- NOTE | 2024-03-17 12:33 | P.PN ---
Subjective Progress Note Date: 03/17/24 On 03/12/2024, this patient is being seen in consultation note for increased dyspnea. The patient is known to have COPD and the patient is O2 dependent maintained on oxygen 2 L/min nasal cannula. He is a former smoker and quit smoking approximately 20 years ago. He used to live in [facility] and is recently located to [place]. The patient is known to have hypertension hyperlipidemia previous history of myocardial infarction that occurred more than 20 years ago. He came with symptoms of URI and subsequently developed cough and congestion and chest tightness and wheezing and he developed acute COPD exacerbation. In the hospital, chest x-ray was done and showed some atelectatic changes in lung base bilaterally. His white cell count was at 12.3 with hemoglobin 16.1 and a platelet count of 176. Normal coagulation profile. D-dimer is at 5.4. Electrolytes are all within normal limits with a BUN of 34 and a creatinine of 1.2. He did have a low-grade fever at time of admission with a temperature of 100.8 and currently is afebrile. He tested positive for COVID-19 infection. No previous infections with a virus. Based on that, the patient was started on Decadron. He was also given a CT of the chest that showed no evidence of any pulmonary embolism. Nevertheless, the CAT scan showed multifocal consolidative changes in the lung bases worse in the left lung base and this is more suggest iram of bacterial infection. Another 11 mm nodule was seen in the left midlung and this needs to be followed up on an outpatient basis following his pneumonia treatment. Based on his consolidative changes, the patient was started on broad-spectrum antibiotics and is currently on a combination of Rocephin and Zithromax. The procalcitonin level was elevated at 9.03 supportive of an underlying bacterial infection. Initial lactic acid level was at 3.6 dropped down to 2.3. The patient is currently on high flow oxygen at 10 L/min nasal cannula. On 03/13/2024, the patient is being seen for a follow-up. The patient is doing well. Oxygenation has improved slightly and the patient has been weaned down to 3 L of oxygen by nasal cannula. Continues to have cough and congestion and some degree of wheezing. Noted the patient has an infection with COVID-19 antibacterial superinfection was also suspected as the patient's procalcitonin level was elevated at 9.0 at the time of admission and the CAT scan of the chest also showed lower lobe consolidation suggestive of bacterial infection. Based on that, the patient was given a combination of Rocephin and Zithromax and the procalcitonin level has been declining and is currently down to 7. Remains on Decadron. No altered mentation. No chest pain. No nausea vomiting or diarrhea. No other complaints otherwise. Patient was today on 03/14/2024, feels better today, on oxygen at 4 L/min, does not seem to be in distress. Chest x-ray is showing COPD with improvement of his infiltrates specially in the lower lobes. WBC count is 12.9 hemoglobin is 13.1 potassium is 4.7 renal profile is normal electrolytes are normal patient remains on Decadron, remains on ceftriaxone, he is also on Zithromax. Improved but not back to baseline. Seen today on 03/15/2024, patient is doing well, feeling better, breathing easier, nonetheless continues to have scattered rhonchi bilaterally. Feeling better but remains congested. Chest x-ray continues to show areas of multifocal infiltrates. Consistent with COVID-19 pneumonia. WBC count is 11 hemoglobin 13.2 electrolytes are normal BUN is 34 creatinine 0.99 The patient is seen today March 16, 2024 in follow-up on the regular medical floor. He is currently sitting up in bed. Awake and alert in no acute distress. He is maintaining O2 saturations in the 90s on 4 L/min per nasal cannula. He is still coughing and quite congested. He remains on Decadron. Remains on Rocephin and azithromycin. Procalcitonin was 7.09. Blood and sputum cultures revealed no growth. He remains on Symbicort, Spiriva, albuterol. Heparin for DVT prophylaxis. The patient is seen today March 17, 2024 in follow-up on the regular medical floor. He is currently sitting up at the bedside. Awake and alert in no acute distress. Breathing a bit easier today compared to yesterday. He has less cough and congestion. He is maintaining good O2 saturations in the 90s on 3 L/min per nasal cannula. He is afebrile. Hemodynamically stable. He is continued on ceftriaxone and azithromycin. Continued on Symbicort, albuterol, Spiriva and Solu-Medrol. Heparin for DVT prophylaxis. Robitussin for his cou gh. No new labs today. Objective - Vital Signs Vital signs: Vital Signs Temp 97.5 F L 03/17/24 07:55 Pulse 90 03/17/24 07:55 Resp 16 03/17/24 07:55 BP 164/92 03/17/24 07:55 Pulse Ox 96 03/17/24 09:30 FiO2 50 03/12/24 03:15 Intake & Output 03/16/24 03/17/24 03/17/24 18:59 06:59 18:59 Intake Total 400 Output Total 0 Balance 400 0 Intake: Oral 400 Output: Stool 0 Other: Voiding Method Toilet Toilet Urinal Urinal # Voids 3 2 - Exam GENERAL EXAM: Alert, pleasant 68-year-old male, sitting up in bed, on 3 L nasal cannula, comfortable in no apparent distress. HEAD: Normocephalic. EYES: Normal reaction of pupils, equal size. NOSE: Clear with pink turbinates. THROAT: No erythema or exudates. NECK: No masses, no JVD. CHEST: No chest wall deformity. LUNGS: Equal air entry with bilateral scattered rhonchi. CVS: S1 and S2 normal with no audible murmur, regular rhythm. ABDOMEN: No hepatosplenomegaly, normal bowel sounds, no guarding or rigidity. SPINE: No scoliosis or deformity SKIN: No rashes CENTRAL NERVOUS SYSTEM: No focal deficits, tone is normal in all 4 extremities. EXTREMITIES: There is no peripheral edema. No clubbing, no cyanosis. Peripheral pulses are intact. - Labs CBC & Chem 7: 03/15/24 06:20 03/15/24 06:20 Labs: Microbiology - Last 24 Hours (Table) 03/11/24 11:45 Blood Culture - Final Blood Assessment and Plan Assessment: Acute hypoxic respiratory failure, secondary to an acute COVID-19 pneumonia and suspected superimposed bacterial pneumonia considering his elevated procalcitonin level, and suspect underlying COPD with acute exacerbation of COPD Acute COVID-19 infection, vaccinated in the past. This is his first infection with the virus Bilateral lower lobe pneumonia, likely bacterial with elevated procalcitonin level. X-ray is showing improvement Coronary disease with remote history of myocardial infarction occurred more than 25 years ago. Obesity with a BMI of 31.6 Hypertension Hyperlipidemia Limited diarrhea probably due to COVID-19, improving Plan: The patient was seen and evaluated Medications reviewed Continue Solu-Medrol Continue Symbicort, Spiriva, albuterol Continue antibiotics Heparin for DVT prophylaxis Titrate down the FiO2 as tolerated Follow-up chest x-ray in a.m. We will continue to follow I have personally seen and examined the patient, performed the documentation and the assessment and plan as written. Number of minutes spent on the visit: 10 Dictation was produced using [employer] dictation software. Please excuse any grammatical, word or spelling errors.
--- NOTE | 2024-03-17 15:32 | P.PN ---
Subjective Progress Note Date: 03/17/24 Patient is a 68-year-old male with a past medical history significant for COPD on 2 L O2 at home, CHF with EF 55-60%, hypertension, hyperlipidemia, history of [place] 25 years ago with 1 stent presented to the emergency department for dyspnea, nonbloody diarrhea, nonbloody emesis, and cough productive of brownish sputum since yesterday evening. He is accompanied by family at bedside. He states that he became acutely ill and dyspneic yesterday evening. Denies feeling unwell prior to that. He currently reports dyspnea and productive cough. Currently denies fever, chills, chest pain, abdominal pain, nausea, vomiting. He is currently on BiPAP saturating at 97%. Initial chest x-ray independently interpreted: Bilateral basilar infiltrates. Initial EKG independently interpreted: Sinus tachycardia with occasional PVCs. Initial labs: WBC 12.3, hemoglobin 16.1, MCV 102, platelets 176, PT 10.8, INR 1, APTT 19.9, D-dimer 5.43, sodium 140, potassium 3.8, chloride 104, CO2 26, BUN 34, creatinine 1.27, glucose 127, lactic acid 2.7, troponin X1 0.096. COVID- positive. Initial vitals: T 100.8 F, [place] 134, RR 30, BP 133/100, O2 74% on room air. 03/12. Patient seen and examined at bedside. No acute events overnight. No significant complaints. Reports continued minimally productive cough and impro prema breathing. Denies fever, chills, chest pain, abdominal pain, nausea, vomiting. Labs today: WBCs 11.9, hemoglobin 13.2, MCV 105.3, platelets 135, sodium 140, potassium 4.6, chloride 107, CO2 22, BUN 43, creatinine 1.69, glucose 165, lactic acid 2.3, procalcitonin 9.03. Chest x-ray today indepe ndently interpreted: Worsened bilateral basilar infiltrates. Echo: LVEF 55-60%, mild mitral regurgitation, no pericardial effusion. 03/14. Patient seen and examined at bedside. No acute events overnight. Reports continued cough productive of brownish sputum. Denies chest pain, abdominal pain, fever, chills, nausea/vomiting. Labs today: WBC 12.9, hemoglobin 13.1, sodium 140, potassium 4.7, chloride 107, CO2 29, BUN 35, creatinine 0.89, glucose 116. Chest x-ray independently interpreted: Unchanged bilateral basilar infiltrates 03/17. Patient seen laying in bed. Reports continued cough productive of brownish sputum but notes that it is improved from prior. Denies chest pain, abdominal pain, fever, chills, nausea/vomiting. Labs today: WBC 11, hemoglobin 13.2, platelets 147, sodium 140, potassium 4.8, chloride 104, CO2 34, BUN 34, creatinine 0.99, glucose 102. Pertinent positives and negatives discussed above, a complete review of systems was performed and all the other systems were negative. Physical examination: Vital signs reviewed. Afebrile, hypertensive, 96% saturation on 3 L nasal cannula General: No acute distress Derm: Warm, dry, intact Head: Atraumatic, normocephalic, symmetric Eyes: EOMI, anicteric sclera Mouth: No lip lesion, mucus membranes moist Cardiovascular: S1-S2 present Lungs: Bilateral expiratory wheezes, no use of accessory muscles Abdominal: Soft, non-tender to palpation Extremities: No cyanosis, clubbing, trace pitting edema bilaterally to the knee Neuro: Alert, oriented x 3, gross neurological examination did not reveal any focal deficits. Cranial nerves II to XII grossly intact. Psych: Appropriate affect and mood Assessment and Plan: Patient is a 68-year-old male with past medical history significant for COPD on 2 L home O2, CHF with EF 55-60%, hypertension, hyperlipidemia, history of [place] 25 years ago with 1 stent admitted for COVID pneumonia. Active #. Acute COVID pneumonia #. Acute on chronic hypoxic respiratory failure #. Acute COPD exacerbation #. Sepsis, secondary to superimposed bacterial pneumonia Continue to wean oxygen as tolerated IV Decadron 6 mg daily for 10 days total Oxygen supplementation as needed to maintain oxygen >88% Ventolin HFA every 4 hours as needed IV ceftriaxone 2 g, day 4 Zithromax 500 mg PO daily, day 4 Ventolin HFA inhaler every 4 hours as needed Robitussin DM 10 mL PO every 6 hours as needed Spiriva daily Pulmonology following Sputum culturesno growth Blood culturesno growth #. NSTEMI, likely type II Troponins X3 0.096, 0.122, 0.096 Echo: LVEF 55-60%, mild mitral regurgitation, no pericardial effusion Telemetry monitoring Aspirin 81 mg PO daily Lipitor 20 mg PO daily Resolved #. Hyperkalemia Chronic #. CHF with EF 55-60%, not in acute exacerbation #. CAD #. Hypertension #. History of [place] 25 years ago with 1 stent #. Hyperlipidemia Lisinopril 10 mg PO twice daily Metoprolol 25 mg PO daily Aspirin 81 mg PO daily #. Chronic kidney disease stage III DVT prophylaxis: Subcutaneous heparin every 8 hours Code status: Full code Anticipated discharge place: Home I saw and evaluated the patient during the staley and critical portions of this encounter, and discussed the case in detail with the resident author of this note, I agree with the Assessment and Plan, and my changes, if any, are highlighted in blue. Objective - Vital Signs Vital signs: Vital Signs Temp 97.9 F 03/17/24 00:52 Pulse 79 03/17/24 00:52 Resp 18 03/17/24 00:52 BP 165/92 03/17/24 00:52 Pulse Ox 94 L 03/17/24 00:52 FiO2 50 03/12/24 03:15 Intake & Output 03/16/24 03/16/24 03/17/24 06:59 18:59 06:59 Intake Total 1050 400 Balance 1050 400 Weight 90.5 kg Intake: IV 10 Invasive Line 2 10 Oral 1040 400 Other: Voiding Method Toilet Toilet Urinal Urinal # Voids 1 3 - Labs CBC & Chem 7: 03/15/24 06:20 03/15/24 06:20 Labs: Microbiology - Last 24 Hours (Table) 03/11/24 11:45 Blood Culture - Final Blood
[2024-03-18 08:19] LABS: Basophils # (A) 0.1 k/uL (0-0.2); Basophils % (A) 0 %; Eosinophils % (A) 0 %; HCT 47.9 % (39.0-53.0); HGB 15.7 gm/dL (13.0-17.5); Lymphocytes # (A) 0.5 k/uL (1.0-4.8); Lymphocytes % (A) 3 %; MCH 33.7 pg (25.0-35.0); MCHC 32.8 g/dL (31.0-37.0); MCV 102.8 fL (80.0-100.0); Macrocytosis Slight; Mean Platelet Volume 8.1; Monocytes # (A) 0.8 k/uL (0-1.0); Monocytes % (A) 5 %; Neutrophils # (A) 14.3 k/uL (1.3-7.7); Neutrophils % (A) 90 %; Platelet Count 202 k/uL (150-450); RBC 4.66 m/uL (4.30-5.90); RDW 14.1 % (11.5-15.5); WBC 15.9 k/uL (3.8-10.6)
[2024-03-18 08:29] LABS: BUN/Creat Ratio 30.45 Ratio (12.00-20.00); Blood Urea Nitrogen 33.5 mg/dL (9.0-27.0); Calcium 8.7 mg/dL (8.7-10.3); Carbon Dioxide 27.4 mmol/L (21.6-31.8); Chloride 102 mmol/L (96-109); Glucose 154 mg/dL (70-110); Potassium 4.7 mmol/L (3.5-5.5); Sodium 140 mmol/L (135-145)
--- NOTE | 2024-03-18 10:31 | XR ---
EXAMINATION TYPE: XR chest 1V portable DATE OF EXAM: 03/18/2024 6:49 AM COMPARISON: 03/14/2024 CLINICAL INDICATION: Male, 68 years old with history of CoVID, , FINDINGS: Heart upper limits of normal in size. Interstitial density and patchy bibasilar opacity persists with slight interval worsening. No pleural effusion. IMPRESSION: Similar interstitial densities but with slight worsening patchy bibasilar infiltrates. [facility], , 03/18/2024 10:29 AM
--- NOTE | 2024-03-18 12:45 | P.PN ---
Subjective Progress Note Date: 03/18/24 Patient is a 68-year-old male with a past medical history significant for COPD on 2 L O2 at home, CHF with EF 55-60%, hypertension, hyperlipidemia, history of PR 25 years ago with 1 stent presented to the emergency department for dyspnea, nonbloody diarrhea, nonbloody emesis, and cough productive of brownish sputum since yesterday evening. He is accompanied by family at bedside. He states that he became acutely ill and dyspneic yesterday evening. Denies feeling unwell prior to that. He currently reports dyspnea and productive cough. Currently denies fever, chills, chest pain, abdominal pain, nausea, vomiting. He is currently on BiPAP saturating at 97%. Initial chest x-ray independently interpreted: Bilateral basilar infiltrates. Initial EKG independently interpreted: Sinus tachycardia with occasional PVCs. Initial labs: WBC 12.3, hemoglobin 16.1, MCV 102, platelets 176, PT 10.8, INR 1, APTT 19.9, D-dimer 5.43, sodium 140, potassium 3.8, chloride 104, CO2 26, BUN 34, creatinine 1.27, glucose 127, lactic acid 2.7, troponin X1 0.096. COVID- positive. Initial vitals: T 100.8 F, HI 134, RR 30, BP 133/100, O2 74% on room air. 03/12. Patient seen and examined at bedside. No acute events overnight. No significant complaints. Reports continued minimally productive cough and impro prema breathing. Denies fever, chills, chest pain, abdominal pain, nausea, vomiting. Labs today: WBCs 11.9, hemoglobin 13.2, MCV 105.3, platelets 135, sodium 140, potassium 4.6, chloride 107, CO2 22, BUN 43, creatinine 1.69, glucose 165, lactic acid 2.3, procalcitonin 9.03. Chest x-ray today indepe ndently interpreted: Worsened bilateral basilar infiltrates. Echo: LVEF 55-60%, mild mitral regurgitation, no pericardial effusion. 03/14. Patient seen and examined at bedside. No acute events overnight. Reports continued cough productive of brownish sputum. Denies chest pain, abdominal pain, fever, chills, nausea/vomiting. Labs today: WBC 12.9, hemoglobin 13.1, sodium 140, potassium 4.7, chloride 107, CO2 29, BUN 35, creatinine 0.89, glucose 116. Chest x-ray independently interpreted: Unchanged bilateral basilar infiltrates 03/17. Patient seen laying in bed. Reports continued cough productive of brownish sputum but notes that it is improved from prior. Denies chest pain, abdominal pain, fever, chills, nausea/vomiting. Labs today: WBC 11, hemoglobin 13.2, platelets 147, sodium 140, potassium 4.8, chloride 104, CO2 34, BUN 34, creatinine 0.99, glucose 102. 03/18. Patient seen lying comfortably in bed. Reports improved cough-sputum is more white in color than yesterday. Denies fever, chills, nausea/vomiting, chest pain, abdominal pain. Labs today: WBC 15.9, hemoglobin 15.7, MCV 102.8, platelets 202, sodium 140, potassium 4.7, chloride 102, CO2 27.4, BUN 33.5, creatinine 1.1, glucose 154, calcium 8.7. Pertinent positives and negatives discussed above, a complete review of systems was performed and all the other systems were negative. Physical examination: Vital signs reviewed. Afebrile, hypertensive, 96% saturation on 3.5 L nasal cannula General: No acute distress Derm: Warm, dry, intact Head: Atraumatic, normocephalic, symmetric Eyes: EOMI, anicteric sclera Mouth: No lip lesion, mucus membranes moist Cardiovascular: S1-S2 present Lungs: Bilateral expiratory wheezes, no use of accessory muscles Abdominal: Soft, non-tender to palpation Extremities: No cyanosis, clubbing, trace pitting edema bilaterally to the knee Neuro: Alert, oriented x 3, gross neurological examination did not reveal any focal deficits. Cranial nerves II to XII grossly intact. Psych: Appropriate affect and mood Assessment and Plan: Patient is a 68-year-old male with past medical history significant for COPD on 2 L home O2, CHF with EF 55-60%, hypertension, hyperlipidemia, history of PR 25 years ago with 1 stent admitted for COVID pneumonia. Active #. Acute COVID pneumonia #. Acute on chronic hypoxic respiratory failure #. Acute COPD exacerbation #. Sepsis, secondary to superimposed bacterial pneumonia Continue to wean oxygen as tolerated IV Decadron 6 mg daily for 10 days total Oxygen supplementation as needed to maintain oxygen >88% Ventolin HFA every 4 hours as needed IV ceftriaxone 2 g, day 4 Zithromax 500 mg PO daily, day 4 Ventolin HFA inhaler every 4 hours as needed Robitussin DM 10 mL PO every 6 hours as needed Spiriva daily Pulmonology following Sputum culturesno growth Blood culturesno growth #. NSTEMI, likely type II Troponins X3 0.096, 0.122, 0.096 Echo: LVEF 55-60%, mild mitral regurgitation, no pericardial effusion Telemetry monitoring Aspirin 81 mg PO daily Lipitor 20 mg PO daily Resolved #. Hyperkalemia Chronic #. CHF with EF 55-60%, not in acute exacerbation #. CAD #. Hypertension #. History of PR 25 years ago with 1 stent #. Hyperlipidemia Lisinopril 10 mg PO twice daily Metoprolol 25 mg PO daily Aspirin 81 mg PO daily #. Chronic kidney disease stage III DVT prophylaxis: Subcutaneous heparin every 8 hours Code status: Full code Anticipated discharge place: Home I saw and evaluated the patient during the staley and critical portions of this encounter, and discussed the case in detail with the resident author of this note, I agree with the Assessment and Plan, and my changes, if any, are highlighted in blue. Objective - Vital Signs Vital signs: Vital Signs Temp 98.1 F 03/18/24 04:00 Pulse 91 03/18/24 04:00 Resp 20 03/18/24 04:00 BP 130/75 03/18/24 04:00 Pulse Ox 96 03/18/24 04:00 FiO2 50 03/12/24 03:15 Intake & Output 03/17/24 03/17/24 03/18/24 06:59 18:59 06:59 Intake Total 480 Output Total 0 0 Balance 0 480 Weight 90.8 kg Intake: Oral 480 Output: Stool 0 0 Other: Voiding Method Toilet Toilet Toilet Urinal Urinal Urinal # Voids 2 4 3 - Labs CBC & Chem 7: 03/18/24 07:00 03/18/24 03:46
--- NOTE | 2024-03-18 13:26 | P.PN ---
Subjective Progress Note Date: 03/18/24 On 03/12/2024, this patient is being seen in consultation note for increased dyspnea. The patient is known to have COPD and the patient is O2 dependent maintained on oxygen 2 L/min nasal cannula. He is a former smoker and quit smoking approximately 20 years ago. He used to live in [facility] and is recently located to [place]. The patient is known to have hypertension hyperlipidemia previous history of myocardial infarction that occurred more than 20 years ago. He came with symptoms of URI and subsequently developed cough and congestion and chest tightness and wheezing and he developed acute COPD exacerbation. In the hospital, chest x-ray was done and showed some atelectatic changes in lung base bilaterally. His white cell count was at 12.3 with hemoglobin 16.1 and a platelet count of 176. Normal coagulation profile. D-dimer is at 5.4. Electrolytes are all within normal limits with a BUN of 34 and a creatinine of 1.2. He did have a low-grade fever at time of admission with a temperature of 100.8 and currently is afebrile. He tested positive for COVID-19 infection. No previous infections with a virus. Based on that, the patient was started on Decadron. He was also given a CT of the chest that showed no evidence of any pulmonary embolism. Nevertheless, the CAT scan showed multifocal consolidative changes in the lung bases worse in the left lung base and this is more suggest iram of bacterial infection. Another 11 mm nodule was seen in the left midlung and this needs to be followed up on an outpatient basis following his pneumonia treatment. Based on his consolidative changes, the patient was started on broad-spectrum antibiotics and is currently on a combination of Rocephin and Zithromax. The procalcitonin level was elevated at 9.03 supportive of an underlying bacterial infection. Initial lactic acid level was at 3.6 dropped down to 2.3. The patient is currently on high flow oxygen at 10 L/min nasal cannula. On 03/13/2024, the patient is being seen for a follow-up. The patient is doing well. Oxygenation has improved slightly and the patient has been weaned down to 3 L of oxygen by nasal cannula. Continues to have cough and congestion and some degree of wheezing. Noted the patient has an infection with COVID-19 antibacterial superinfection was also suspected as the patient's procalcitonin level was elevated at 9.0 at the time of admission and the CAT scan of the chest also showed lower lobe consolidation suggestive of bacterial infection. Based on that, the patient was given a combination of Rocephin and Zithromax and the procalcitonin level has been declining and is currently down to 7. Remains on Decadron. No altered mentation. No chest pain. No nausea vomiting or diarrhea. No other complaints otherwise. Patient was today on 03/14/2024, feels better today, on oxygen at 4 L/min, does not seem to be in distress. Chest x-ray is showing COPD with improvement of his infiltrates specially in the lower lobes. WBC count is 12.9 hemoglobin is 13.1 potassium is 4.7 renal profile is normal electrolytes are normal patient remains on Decadron, remains on ceftriaxone, he is also on Zithromax. Improved but not back to baseline. Seen today on 03/15/2024, patient is doing well, feeling better, breathing easier, nonetheless continues to have scattered rhonchi bilaterally. Feeling better but remains congested. Chest x-ray continues to show areas of multifocal infiltrates. Consistent with COVID-19 pneumonia. WBC count is 11 hemoglobin 13.2 electrolytes are normal BUN is 34 creatinine 0.99 The patient is seen today March 16, 2024 in follow-up on the regular medical floor. He is currently sitting up in bed. Awake and alert in no acute distress. He is maintaining O2 saturations in the 90s on 4 L/min per nasal cannula. He is still coughing and quite congested. He remains on Decadron. Remains on Rocephin and azithromycin. Procalcitonin was 7.09. Blood and sputum cultures revealed no growth. He remains on Symbicort, Spiriva, albuterol. Heparin for DVT prophylaxis. The patient is seen today March 17, 2024 in follow-up on the regular medical floor. He is currently sitting up at the bedside. Awake and alert in no acute distress. Breathing a bit easier today compared to yesterday. He has less cough and congestion. He is maintaining good O2 saturations in the 90s on 3 L/min per nasal cannula. He is afebrile. Hemodynamically stable. He is continued on ceftriaxone and azithromycin. Continued on Symbicort, albuterol, Spiriva and Solu-Medrol. Heparin for DVT prophylaxis. Robitussin for his cou gh. No new labs today. The patient is seen today March 18, 2024 in follow-up on the regular medical floor. He is currently sitting up in a chair. Awake and alert in no acute distress. Maintaining good O2 saturations in the 90s on 2 L/min per nasal cannula. Has been afebrile. Hemodynamically stable. Chest x-ray reveals stable interstitial densities. Blood and sputum cultures revealed no growth. White count 15.9. Hemoglobin 15.7. Platelets 202. Sodium 140. Potassium 4.7. Bicarb 27. BUN 34. Creatinine 1.1. Glucose 154. Remains on Symbicort, Spiriva, albuterol. Remains on IV Solu-Medrol. Antibiotics in the form of ceftriaxone and azithromycin. Objective - Vital Signs Vital signs: Vital Signs Temp 97.5 F L 03/18/24 08:00 Pulse 70 03/18/24 08:00 Resp 18 03/18/24 08:00 BP 154/82 03/18/24 08:00 Pulse Ox 92 L 03/18/24 08:00 FiO2 50 03/12/24 03:15 Intake & Output 03/17/24 03/18/24 03/18/24 18:59 06:59 18:59 Intake Total 480 Output Total 0 0 0 Balance 0 480 0 Weight 90.8 kg Intake: Oral 480 Output: Stool 0 0 0 Other: Voiding Method Toilet Toilet Toilet Urinal Urinal Urinal # Voids 4 3 - Exam GENERAL EXAM: Alert, 68-year-old male, sitting up in a chair, on 2 L nasal cannula, comfortable in no apparent distress. HEAD: Normocephalic. EYES: Normal reaction of pupils, equal size. NOSE: Clear with pink turbinates. THROAT: No erythema or exudates. NECK: No masses, no JVD. CHEST: No chest wall deformity. LUNGS: Equal air entry with bilateral scattered rhonchi. CVS: S1 and S2 normal with no audible murmur, regular rhythm. ABDOMEN: No hepatosplenomegaly, normal bowel sounds, no guarding or rigidity. SPINE: No scoliosis or deformity SKIN: No rashes CENTRAL NERVOUS SYSTEM: No focal deficits, tone is normal in all 4 extremities. EXTREMITIES: There is no peripheral edema. No clubbing, no cyanosis. Peripheral pulses are intact. - Labs CBC & Chem 7: 03/18/24 07:00 03/18/24 03:46 Labs: Abnormal Lab Results - Last 24 Hours (Table) 03/18/24 03/18/24 Range/Units 03:46 07:00 WBC 15.9 H (3.8-10.6) k/uL MCV 102.8 H (80.0-100.0) fL Neutrophils # 14.3 H (1.3-7.7) k/uL Lymphocytes # 0.5 L (1.0-4.8) k/uL BUN 33.5 H (9.0-27.0) mg/dL BUN/Creatinine Ratio 30.45 H (12.00-20.00) Ratio Glucose 154 H (70-110) mg/dL Assessment and Plan Assessment: Acute hypoxic respiratory failure, secondary to an acute COVID-19 pneumonia and suspected superimposed bacterial pneumonia considering his elevated procalcitonin level, and suspect underlying COPD with acute exacerbation of COPD Acute COVID-19 infection, vaccinated in the past. This is his first infection with the virus Bilateral lower lobe pneumonia, likely bacterial with elevated procalcitonin level. X-ray is stable Coronary disease with remote history of myocardial infarction occurred more than 25 years ago. Obesity with a BMI of 31.6 Hypertension Hyperlipidemia Limited diarrhea probably due to COVID-19, improving Plan: The patient was seen and evaluated Chest x-ray, labs and medications reviewed Convert Solu-Medrol to prednisone taper Cleared for discharge from the pulmonary standpoint Continue his home oxygen, Trelegy and Singulair Complete a course of antibiotics Follow-up in the office in 1 week I have personally seen and examined the patient, performed the documentation and the assessment and plan as written. Number of minutes spent on the visit: 10 Dictation was produced using [employer] dictation software. Please excuse any grammatical, word or spelling errors.
[2024-03-18 13:53] VITALS: BMI 31.3
[2024-03-19 04:54] LABS: Basophils % (A) 0 %; Eosinophils % (A) 0 %; HCT 42.3 % (39.0-53.0); HGB 14.1 gm/dL (13.0-17.5); Lymphocytes # (A) 0.3 k/uL (1.0-4.8); Lymphocytes % (A) 2 %; MCH 33.5 pg (25.0-35.0); MCHC 33.4 g/dL (31.0-37.0); MCV 100.5 fL (80.0-100.0); Macrocytosis Slight; Mean Platelet Volume 8.5; Monocytes # (A) 0.6 k/uL (0-1.0); Monocytes % (A) 4 %; Neutrophils # (A) 13.3 k/uL (1.3-7.7); Neutrophils % (A) 93 %; Platelet Count 169 k/uL (150-450); RBC 4.21 m/uL (4.30-5.90); RDW 14.1 % (11.5-15.5); WBC 14.3 k/uL (3.8-10.6)
[2024-03-19 09:23] VITALS: BP 161/89; PULSE 77; RESP 18; TEMP 98.2
[2024-03-19 10:17] LABS: BUN/Creat Ratio 33.33 Ratio (12.00-20.00); Calcium 8.8 mg/dL (8.7-10.3); Chloride 103 mmol/L (96-109); Glucose 138 mg/dL (70-110); Potassium 4.6 mmol/L (3.5-5.5); Sodium 141 mmol/L (135-145)
--- NOTE | 2024-03-19 11:02 | P.DS ---
Providers Date of admission: 03/11/24 14:41 Attending physician: Lee Rosenberg Consults: 03/11/24 14:37 Consult Physician Routine Consulting Provider: Uzile Mtz Consult Reason/Comments: COVID-pneumonia Do you want consulting provider notified?: Yes [facility] Course: Hospital Course: Patient is a 68-year-old male with a past medical history significant for COPD on 2 L O2 at home, CHF with EF 55-60%, hypertension, hyperlipidemia, history of [place] 25 years ago with 1 stent presented to the emergency department for dyspnea, nonbloody diarrhea, nonbloody emesis, and cough productive of brownish sputum since yesterday evening. He is accompanied by family at bedside. He states that he became acutely ill and dyspneic yesterday evening. Denies feeling unwell prior to that. He currently reports dyspnea and productive cough. Currently denies fever, chills, chest pain, abdominal pain, nausea, vomiting. He is currently on BiPAP saturating at 97%. Initial chest x-ray independently interpreted: Bilateral basilar infiltrates. Initial EKG independently interpreted: Sinus tachycardia with occasional PVCs. Initial labs: WBC 12.3, hemoglobin 16.1, MCV 102, platelets 176, PT 10.8, INR 1, APTT 19.9, D-dimer 5.43, sodium 140, potassium 3.8, chloride 104, CO2 26, BUN 34, creatinine 1.27, glucose 127, lactic acid 2.7, troponin X1 0.096. COVID-positive. Initial vitals: T 100.8 F, IL 134, RR 30, BP 133/100, O2 74% on room air. Pulmonology was consulted. Patient was continued on IV Decadron 6 mg daily for 10 days total, Ventolin HFA every 4 hours, IV ceftriaxone 2 g, Zithromax 500 mg daily, Robitussin DM 10 mL every 6 hours as needed, Spiriva daily. Patient oxygen requirements have returned to baseline 2 L. Patient is medically optimized for discharge. Medication changes upon discharge: Discontinue montelukast, begin Roflumilast 250 mcg PO daily for 4 weeks, cefdinir 300 mg PO twice daily for 4 days beginning 03/20, Tessalon Perles 100 mg PO 3 times daily as needed for cough. Abx course was extended to 10 days total, secondary to having GOLD Stage D with chronic respiratory failure and the production of increased amount of sputum with change of coloration from brownish to white sputum at the 4 day [place] of therapy. Final Diagnosis: #. Acute COVID-19 pneumonia #. Acute on chronic hypoxic respiratory failure #. Acute COPD exacerbation #. Sepsis, secondary to superimposed bacterial pneumoniasepsis resolved #. NSTEMI, likely type II #. Hyperkalemia, resolved #. CHF with EF 55-60%, not in acute exacerbation #. CAD #. Hypertension #. History of [place] 25 years ago with 1 stent #. Hyperlipidemia Physical examination: Vital signs reviewed. Afebrile, hypertensive, saturating well on 2 L nasal cannula General: Nontoxic, no distress, appears stated age, well-appearing Derm: Warm, dry, intact Head: Atraumatic, normocephalic, symmetric Eyes: EOMI, anicteric sclera Mouth: No lip lesion, mucus membranes moist Cardiovascular: S1-S2 regular, no murmur Lungs: Mild bilateral expiratory wheezesimproved, no rhonchi, no rales, no accessory muscle use Abdominal: Soft, non-tender to palpation Extremities: No cyanosis, clubbing, or pedal edema Neuro: Alert, oriented x 3, gross neurological examination did not reveal any focal deficits. Cranial nerves II to XII grossly intact. I saw and evaluated the patient during the staley and critical portions of this encounter, and discussed the case in detail with the resident author of this note, I agree with the Assessment and Plan, and my changes, if any, are highlighted in blue. Patient Condition at Discharge: Stable Plan - Discharge Summary New Discharge Prescriptions: New Benzonatate [Tessalon Perles] 100 mg PO TID PRN #30 capsule PRN Reason: Cough Cefdinir [Omnicef] 300 mg PO Q12HR 4 Days #8 capsule Roflumilast 250 mcg PO DAILY #28 tab Continue Simvastatin 40 mg PO HS Semaglutide [Wegovy] 2.4 mg SQ MO lisinopriL [Zestril] 10 mg PO BID Metoprolol Succinate [Metoprolol Succinate ER] 25 mg PO DAILY Fluticasone/Umeclidin/Vilanter [Trelegy Ellipta 200-62.5-25] 1 puff INHALATION RT-DAILY Eszopiclone [Lunesta] 3 mg PO HS predniSONE 10 mg PO DAILY Furosemide [Lasix] 40 mg PO DAILY Discontinued Montelukast [Singulair] 10 mg PO DAILY Discharge Medication List Fluticasone/Umeclidin/Vilanter [Trelegy Ellipta 200-62.5-25] 1 puff INHALATION RT-DAILY 06/02/23 [History] Metoprolol Succinate [Metoprolol Succinate ER] 25 mg PO DAILY 06/02/23 [History] Simvastatin 40 mg PO HS 06/02/23 [History] lisinopriL [Zestril] 10 mg PO BID 06/02/23 [History] Eszopiclone [Lunesta] 3 mg PO HS 03/11/24 [History] Furosemide [Lasix] 40 mg PO DAILY 03/11/24 [History] Semaglutide [Wegovy] 2.4 mg SQ MO 03/11/24 [History] predniSONE 10 mg PO DAILY 03/11/24 [History] Benzonatate [Tessalon Perles] 100 mg PO TID PRN #30 capsule 03/19/24 [Rx] Cefdinir [Omnicef] 300 mg PO Q12HR 4 Days #8 capsule 03/19/24 [Rx] Roflumilast 250 mcg PO DAILY #28 tab 03/19/24 [Rx] Follow up Appointment(s)/Referral(s): Pérez Haley DO [Doctor of Osteopathic Medicine] - 1 Week Anant Maria DO [Primary Care Provider] - 1-2 days Activity/Diet/Wound Care/Special Instructions: Please follow up with primary care provider and inspector rag sorting. Discharge Disposition: HOME SELF-CARE
== END 2024-03-19 12:03 | disposition home or self-care (01) | DRG 871 ==
LOC: EC 11:13 → 3SCARD 14:41 → 4SSUR 03-15 22:53
PROVIDERS: ADMIT Student in an Organized Health Care Education/Training Program; ATTEND Student in an Organized Health Care Education/Training Program
PROC: 5A09457 Assistance with Respiratory Ventilation, 24-96 Consecutive Hours, Continuous Positive Airway Pressure (ICD-10-PCS; principal; 2024-03-12)
DX: A41.9 Sepsis, unspecified organism (principal); I21.A1 Myocardial infarction type 2; J12.82 Pneumonia due to coronavirus disease 2019; J96.21 Acute and chronic respiratory failure with hypoxia; U07.1 COVID-19; J15.9 Unspecified bacterial pneumonia; J44.0 Chronic obstructive pulmonary disease with (acute) lower respiratory infection; I50.32 Chronic diastolic (congestive) heart failure; I13.0 Hypertensive heart and chronic kidney disease with heart failure and stage 1 through stage 4 chronic kidney disease, or unspecified chronic kidney disease; J44.1 Chronic obstructive pulmonary disease with (acute) exacerbation; E87.20 Acidosis, unspecified; N17.9 Acute kidney failure, unspecified; N18.30 Chronic kidney disease, stage 3 unspecified; E78.5 Hyperlipidemia, unspecified; I49.3 Ventricular premature depolarization; E87.5 Hyperkalemia; E66.9 Obesity, unspecified; E11.22 Type 2 diabetes mellitus with diabetic chronic kidney disease; I25.10 Atherosclerotic heart disease of native coronary artery without angina pectoris; I25.2 Old myocardial infarction; Z99.81 Dependence on supplemental oxygen; Z79.82 Long term (current) use of aspirin; Z87.891 Personal history of nicotine dependence; Z68.31 Body mass index [BMI] 31.0-31.9, adult; Z79.899 Other long term (current) drug therapy
CPT/HCPCS: 36415; 36600; 71045; 71275; 80048; 80053; 82805; 83605; 83735; 83880; 84132; 84145; 84484; 85025; 85379; 85610; 85730; 87040; 87070; 87205; 87449; 87636; 93005; 93308; 94640; 94660; 94760; 96361; 96365; 96375; 99291

== ENCOUNTER → 2024-03-25 | Outpatient (CLI) | payer MEDICARE ==
--- NOTE | 2024-03-25 14:58 | XR ---
EXAMINATION TYPE: XR chest 2V DATE OF EXAM: 03/25/2024 2:46 PM COMPARISON: 03/18/2024 CLINICAL INDICATION: Male, 68 years old with history of [id number], TECHNIQUE: XR chest 2V view(s) obtained. FINDINGS: The heart size is normal. The pulmonary vasculature is normal. Minimal right pleural effusions at the costophrenic angle.. IMPRESSION: 1. Minimal right costophrenic angle pleural fluid [facility] Cathi Griffin, , 03/25/2024 2:56 PM
== END | disposition home or self-care (01) ==
LOC: RADXRYALE 14:35
PROVIDERS: ATTEND Physician Assistant
DX: J44.1 Chronic obstructive pulmonary disease with (acute) exacerbation (principal); R91.1 Solitary pulmonary nodule; J18.9 Pneumonia, unspecified organism; Z86.16 Personal history of COVID-19; R93.1 Abnormal findings on diagnostic imaging of heart and coronary circulation
CPT/HCPCS: 71046